=== PATIENT | male | born 1945 | race Caucasian/White ===

== ENCOUNTER → 2017-07-11 11:34 | Outpatient (CLI) | payer MEDICARE, OTHER, SELFPAY | PROVIDERS: Family Provider Urology; PCP Internal Medicine; Visit Provider Radiology Radiation Oncology | DX: C61 Malignant neoplasm of prostate (principal) | CPT/HCPCS: 36415; 84153 ==

== ENCOUNTER 2017-08-16 14:38 | Emergency (ER) | payer MEDICARE, OTHER, SELFPAY ==
[2017-08-16 14:43] VITALS: BP 123/82; PULSE 65; RESP 16; TEMP 36.4; O2SAT 97; BMI 26.1
--- NOTE | 2017-08-16 14:55 | ED.LOWEXIN ---
HPI - Extremity Injury (Lower) <Marlen Curtis PA-C - Last Filed: 08/16/17 21:42> General Chief Complaint: Extremity Injury, Lower Stated Complaint: SWOLLEN LEFT LOWER LEG Time Seen by Provider: 08/16/17 14:55 Source: patient Mode of arrival: ambulatory Limitations: no limitations History of Present Illness HPI Narrative: This 72-year-old male comes in due to acute left calf pain and swelling in the last 2 days. He states that he has chronic swelling in his ankle on that side along with weakness due to previous injury 25 years ago. He has also been having ongoing pain and weakness in both legs related to his degenerative disc disease and back problems. In general his pain and weakness have not gotten any worse. He has neuropathy and his numbness is stable. He states that because of his back problems, he has been less active than normal in the last few months. He denies recent injury, however he did have a fall while on vacation in May and had more pain in the left lower extremity throughout afterwards. Two days ago, he was a little bit more active than usual and was out on his sailboat, but does not remember any injury to the leg. He states the calf feels ?like a balloon? and it is harder to bend his ankle due to the swelling. He denies any chest pain, dyspnea, nausea or abdominal symptoms. He denies any other complaints on systems review. He does not have any history of gout or blood clots. Related Data Home Medications Medication Instructions Recorded Confirmed ACETAMINOPHEN/ASPIRIN, BUFFE 1 tab PO PRN #0 06/09/12 (#EXCEDRIN BACK & BODY 250 MG-250 MG) aspirin 325 mg PO PRN #0 06/09/12 multivitamin [Multiple Vitamins] 1 tab PO QDAY #0 03/25/17 potassium citrate 10 meq PO QDAY #0 03/25/17 vit C,S-Wo-mwaai-lutein-zeaxan 1 ea PO #0 03/25/17 [PreserVision AREDS 2] Review of Systems <Marlen Curtis PA-C - Last Filed: 08/16/17 21:42> Review of Systems All systems reviewed & are unremarkable except as noted in HPI and below Exam <Marlen Curtis PA-C - Last Filed: 08/16/17 21:42> Narrative Exam Narrative: GENERAL APPEARANCE: Patient sitting comfortably, in no distress. LUNGS: Clear to auscultation bilaterally. HEART: Rate and rhythm regular without murmur, normal S1 and S2, no S3 or S4. ABDOMEN: Soft, nontender, nondistended EXTREMITIES: No edema over the right foot or lower extremity, moderate edema on the left from the foot to the calf. Right ankle measures 19.5 cm, left 23. Right calf measures 37 cm, left 41.5. Left calf is tender to touch. Numerous varicosities noted bilaterally. There is no cyanosis, pedal and PT pulses are intact bilaterally Initial Vital Signs Initial Vital Signs: Vital Signs Temperature 97.6 F 08/16/17 14:43 Pulse Rate 65 08/16/17 14:43 Respiratory Rate 16 08/16/17 14:43 Blood Pressure 123/82 H 08/16/17 14:43 Pulse Oximetry 97 08/16/17 14:43 <DO Pedro Hawk Last Filed: 08/17/17 07:27> Initial Vital Signs Initial Vital Signs: Vital Signs Temperature 97.6 F 08/16/17 14:43 Pulse Rate 65 08/16/17 14:43 Respiratory Rate 16 08/16/17 14:43 Blood Pressure 123/82 H 08/16/17 14:43 Pulse Oximetry 97 08/16/17 14:43 Course <Marlen Curtis PA-C - Last Filed: 08/16/17 21:42> Orders Ordered: ED Orders 08/16/17 15:22 perip venous low extrem lt Stat Vital Signs - 8 hr 08/16/17 14:43 08/16/17 16:41 Temperature 97.6 F 98.0 F Pulse Rate 65 57 L Respiratory Rate 16 14 Blood Pressure 123/82 H Blood Pressure [Left Arm] 137/101 H Pulse Oximetry 97 96 <DO Pedro Hawk Last Filed: 08/17/17 07:27> Orders Ordered: ED Orders 08/16/17 15:22 [facility] venous low extrem lt Stat Vital Signs - 8 hr 08/16/17 14:43 08/16/17 16:41 Temperature 97.6 F 98.0 F Pulse Rate 65 57 L Respiratory Rate 16 14 Blood Pressure 123/82 H Blood Pressure [Left Arm] 137/101 H Pulse Oximetry 97 96 MDM - Extremity Injury (Lower) <Marlen Curtis PA-C - Last Filed: 08/16/17 21:42> Imaging Data Venous US: Radiologist's impression: View Report History [address] [address] Ultrasound Report Signed Patient: Krzysztof Mayers MR#: [id number] : 1945 Acct:[id number] Age/Sex: 72 / M Date of Service: 08/16/17 Loc: ED Accession Number: [id number] Procedure: US perip venous low extrem lt Ordering Provider: Marlen Curtis P.A-C PROCEDURE: US PERIPH VENOUS LOW EXTREM LT INDICATIONS: LEFT LEG EDEMA; CALF PAIN TECHNIQUE: Real-time imaging, as well as color and pulse Doppler interrogation, were performed of the lower extremity deep veins from the inguinal ligament to the popliteal fossa. COMPARISON: None. FINDINGS: The deep veins are normally compressible, and free of intraluminal thrombus. Color and pulse Doppler demonstrate normal phasic intraluminal flow. There is normal augmentation response to distal compression maneuver. However, there is a large elongated fluid collection identified that has a heterogeneous appearance that extends from the posterior aspect of the lower thigh through the popliteal fossa to the mid calf. This fluid collection measures up to 18 cm in length. IMPRESSION: 1. No evidence of left lower extremity deep vein thrombosis. 2. Large complex fluid collection along the posterior aspect of the left lower leg is centered within the popliteal fossa, suspicious for a hematoma. A very large Elliott cyst or abscess is difficult to exclude. Please correlate clinically. Dictated by: Darryl Thomas M.D. on 08/16/2017 at 16:48 Approved by: Darryl Thomas M.D. on 08/16/2017 at 16:52 Discharge Plan Departure Patient Disposition: Home, Self-Care Clinical Impression: Edema of lower extremity, Hematoma Discharge Date/Time: 08/16/17 17:36 Interventions: ED Discharge Assessment Last Done: 08/16/17 17:31 Instructions: DI for Hematoma (Bruise) Activity Restrictions/Additional Instructions: Return as we talked about if you have acutely worsening symptoms or new symptoms such as fever. Keep this leg elevated and rest over the weekend. Use the compression wraps as needed for comfort. Call your PCP and you should follow-up on Friday to determine whether this is improving or whether a referral is needed. There is no evidence of a blood clot on your scan today, but you do have a probable muscle tear that is causing a blood collection, or this could be due to an inflamed cyst. Take your usual pain medicines at home. Prescriptions: No Action ACETAMINOPHEN/ASPIRIN, BUFFE (#EXCEDRIN BACK & BODY 250 MG-250 MG) 1 tab PO PRN Qty: 0 RF: 0 aspirin 325 MG tablet 325 mg PO PRN Qty: 0 RF: 0 multivitamin [Multiple Vitamins] 1 EACH tablet 1 tab PO QDAY Qty: 0 RF: 0 potassium citrate 10 MEQ tablet extended release 10 meq PO QDAY Qty: 0 RF: 0 vit C,B-Gp-djjom-lutein-zeaxan [PreserVision AREDS 2] 1 EACH capsule 1 ea PO Qty: 0 RF: 0 Referrals: Dheeraj Tristan MD [Primary Care Provider] - <Tiago Mcmanus DO - Last Filed: 08/17/17 07:27> Cosign ED Attending Gabeature Attestation: I was available for consultation during this patient's emergency department encounter
--- NOTE | 2017-08-16 15:22 | DI.US.S_ITS ---
PROCEDURE: US PERIPH VENOUS LOW EXTREM LT INDICATIONS: LEFT LEG EDEMA; CALF PAIN TECHNIQUE: Real-time imaging, as well as color and pulse Doppler interrogation, were performed of the lower extremity deep veins from the inguinal ligament to the popliteal fossa. COMPARISON: None. FINDINGS: The deep veins are normally compressible, and free of intraluminal thrombus. Color and pulse Doppler demonstrate normal phasic intraluminal flow. There is normal augmentation response to distal compression maneuver. However, there is a large elongated fluid collection identified that has a heterogeneous appearance that extends from the posterior aspect of the lower thigh through the popliteal fossa to the mid calf. This fluid collection measures up to 18 cm in length. IMPRESSION: 1. No evidence of left lower extremity deep vein thrombosis. 2. Large complex fluid collection along the posterior aspect of the left lower leg is centered within the popliteal fossa, suspicious for a hematoma. A very large Elliott cyst or abscess is difficult to exclude. Please correlate clinically. Dictated by: Darryl Thomas M.D. on 08/16/2017 at 16:48 Approved by: Darryl Thomas M.D. on 08/16/2017 at 16:52
--- NOTE | 2017-08-16 15:24 | PC.NURSE ---
Left calf and ankle are swollen - pain in posterior aspect of calf and knee - difficulty weight bearing - tender to touch - no notable redness or warmth
[2017-08-16 16:41] VITALS: BP 137/101; PULSE 57; RESP 14; TEMP 36.7; O2SAT 96
--- NOTE | 2017-08-16 17:34 | PC.NURSE ---
shalonda wrap from foot to just below knee
== END 2017-08-16 17:36 | disposition home or self-care (01) ==
PROVIDERS: Emergency Provider Internal Medicine; PCP Internal Medicine
DX: R60.0 Localized edema (principal); S80.12XA Contusion of left lower leg, initial encounter
CPT/HCPCS: 93971; 99282; 99284

== ENCOUNTER → 2017-08-25 16:29 | Outpatient (CLI) | payer MEDICARE, OTHER, SELFPAY ==
[2017-08-25 17:48] LABS: Alanine Aminotransferase 38 IU/L (21-72); Albumin 4.3 g/dL (3.5-5.0); Albumin Globulin Ratio 1.4 (1.0-2.8); Alkaline Phosphatase 105 U/L (38-126); Aspartate Aminotransferase 27 IU/L (17-59); BUN Creatinine Ratio 34.4 (6-22); Bilirubin Total 0.6 mg/dL (0.2-1.3); Blood Urea Nitrogen 31 mg/dL (9-20); Carbon Dioxide 26 mmol/L (22-32); Chloride 106 mmol/L (98-107); Estimated Glomerular Filt Rate > 60.0 mL/min (>60); Glucose 83 mg/dL (80-110); HEMOLYSIS < 15 (0-50); Hemoglobin A1C% w Est Avg Glu 5.2 % (4.0-6.0); Potassium 4.6 mmol/L (3.4-5.1); Sodium 142 mmol/L (137-145); Total Protein 7.3 g/dL (6.3-8.2)
[2017-08-25 18:18] LABS: Thyroid Stimulating Hormone 1.66 uIU/mL (0.47-4.68)
[2017-08-25 18:37] LABS: Vitamin B12 720 pg/mL (239-931)
[2017-08-27 23:48] LABS: Vitamin B6 10.4 ng/mL (2.1-21.7)
[2017-08-29 00:29] LABS: Albumin 4.1 g/dL (3.8-4.8); Alpha 1 Globulin 0.4 g/dL (0.2-0.3); Alpha 2 Globulin 0.9 g/dL (0.5-0.9); Beta 1 Globulin 0.4 g/dL (0.4-0.6); Gamma Globulin 0.9 g/dL (0.8-1.7); Protein, Total 7.1 g/dL (6.1-8.1)
[2017-08-29 11:39] LABS: ANA Screen NEGATIVE (Negative); DNA Antibody Crithidia IFA NEGATIVE (Negative); Rheumatoid Factor 24 IU/mL (< 14); Sjogren Antiboday SS-A <1.0 NEG AI (<1.0 NEGATIVE); Sjogren Antiboday SS-B <1.0 NEG AI (<1.0 NEGATIVE); Sm Antibody <1.0 NEG AI (<1.0 NEGATIVE); Sm/RNP Antibody <1.0 NEG AI (<1.0 NEGATIVE)
[2017-08-30 11:12] LABS: Albumin 100 %; Protein/ Creatinine Ratio 95 mg/g creat (22-128); Total Urine Protein 15 mg/dL (5-25); Urine Creatinine, Random 158 mg/dL (20-370)
== END ==
PROVIDERS: PCP Internal Medicine; Visit Provider Psychiatry & Neurology Neurology
DX: M54.40 Lumbago with sciatica, unspecified side (principal); G89.29 Other chronic pain; M48.062 Spinal stenosis, lumbar region with neurogenic claudication; M54.16 Radiculopathy, lumbar region; M54.17 Radiculopathy, lumbosacral region; R20.2 Paresthesia of skin
CPT/HCPCS: 36415; 80053; 82607; 83036; 84155; 84156; 84165; 84166; 84207; 84443; 86038; 86430; 87522

== ENCOUNTER → 2017-09-26 06:39 | Outpatient (CLI) | payer MEDICARE, OTHER, SELFPAY ==
--- NOTE | 2017-09-26 | DI.MRI.S_ITS ---
PROCEDURE: MR KNEE LT WO CON INDICATIONS: RUPTURE OF POPLIPIAL CYST TECHNIQUE: Noncontrast sagittal PD fast spin echo and T2 fast spin echo with fat saturation, sagittal 3-D FLASH with fat saturation; coronal T1 spin echo and PD fast spin echo with fat saturation, and axial PD fast spin echo with fat saturation through the knee. COMPARISON: None. FINDINGS: Image quality: Excellent. Menisci: The complex tear is seen involving posterior horn of medial meniscus extending to both superior and inferior articulating surfaces. Signal abnormality involving anterior horn of lateral meniscus is also noted extending to superior articulating surface consistent with an oblique tear in anterior horn of the lateral meniscus. The meniscal root ligaments appear intact Cruciate ligaments: There is full-thickness rupture of ACL of indeterminate age. Degenerative changes in the PCL is seen with no evidence of PCL tear. Medial structures: The medial collateral ligament is mildly thickened and suggestive of very low-grade MCL sprain. The posterior oblique ligament, semimembranosus tendon insertions, oblique popliteal ligament, and meniscocapsular junction appear intact. Visualized portions of the pes anserinus tendons appear normal. No abnormal bursal fluid. Lateral structures: The lateral collateral ligament, long and short heads of the biceps femoris tendon appear intact. The popliteus tendon appears normal; the popliteofibular ligament appears intact. The posterosuperior and anteroinferior popliteomeniscal fascicles appear intact. The arcuate and fabellofibular ligaments appear intact, on either side of the lateral inferior geniculate artery. Iliotibial band appears normal. Anterior structures: The quadriceps and patellar tendons appear intact. Patellar alignment is normal. Postsurgical changes involving anterior tibial tuberosity the patellar tendon insertion site is seen with blooming metallic artifacts. No femoral trochlear dysplasia or ventral trochlear prominence. No edema in the infrapatellar fat pad. Bones and cartilage: No bone marrow contusions or fractures. [id number] tricompartmental osteoarthritis is seen. Mild to moderate thinning of articulating cartilages and patellar cartilage in all 3 compartments is seen. Joint space: There is moderate to large amount of joint effusion. No gross loose body. A 3.3 x 1.8 x 6.1 cm popliteal cyst is seen. Normal appearing synovial plicae are incidentally noted. IMPRESSION: 1. Age indeterminant ACL rupture. Degenerative changes in distal PCL with no evidence of PCL tear. 2. Complex tear involving posterior horn of medial meniscus extending to both superior and inferior articulating surfaces. Complex oblique tear involving anterior horn of lateral meniscus extending to superior articulating surface. 3. Moderate amount of joint effusion. Popliteal cyst as above. No gross loose body. Moderate tricompartment osteoarthritis. No fracture or dislocation. 4. Post surgical changes at distal patella tendon insertion on the tibial tuberosity. Patella tendon appears grossly intact. Dictated by: Joe Dugan M.D. on 09/26/2017 8:27 Approved by: Joe Dugan M.D. on 09/26/2017 at 10:00
== END ==
PROVIDERS: PCP Internal Medicine; Visit Provider Orthopaedic Surgery
DX: M66.0 Rupture of popliteal cyst (principal); S83.512A Sprain of anterior cruciate ligament of left knee, initial encounter; S83.272A Complex tear of lateral meniscus, current injury, left knee, initial encounter; S83.232A Complex tear of medial meniscus, current injury, left knee, initial encounter; M25.462 Effusion, left knee; M17.12 Unilateral primary osteoarthritis, left knee
CPT/HCPCS: 73721

== ENCOUNTER 2017-10-31 09:16 | Emergency (ER) | payer MEDICARE, OTHER, SELFPAY ==
[2017-10-31 09:23] VITALS: BP 168/100; PULSE 68; RESP 18; TEMP 36.7; O2SAT 93; BMI 26.3
--- NOTE | 2017-10-31 09:33 | ED.BACK ---
HPI - Back Pain/Injury General Chief Complaint: Back Pain/Injury Stated Complaint: BACK SURGERY 3 WKS AGO, BACK PAIN Time Seen by Provider: 10/31/17 09:30 Source: patient Mode of arrival: ambulatory Limitations: no limitations History of Present Illness HPI Narrative: Patient is a 72-year-old male who underwent a L3-L4 laminectomy by at [facility] on September 30, 2017. Operative report was available for my review and it did appear to be in a uncomplicated laminectomy. Patient states that afterwards he felt better. He states that prior to his surgery he did have lower back pain with bilateral radiculopathy. States he was feeling well after the surgery until approximately 1 week ago when he ?over did it? he states that he was helping a friend rig ACL boat. He states that he was cautious to not lift anything however did have a lot of bending and twisting. He states that he had a follow-up scheduled with his operative surgeon afterwards which was within the past week and did discuss the increase in pain that he was having to his lower back. He states that he was on a course of steroids which she finished. States that over the past week he has had worsening pain and radiculopathy and only his left lower extremity. He states that it feels very similar to his preoperative pain although only in the left lower extremity and not the right lower extremity. He has taken pain medication and anti-inflammatories at home without any improvement. He is scheduled for an MRI next however when he called his operative surgeon this morning the informed him to come to the emergency department. Patient denies any bowel or bladder symptoms. No saddle anesthesia. No fevers. Does have swelling over the surgical incision that has appeared over the past couple days. No fevers. Patient states that the spine surgeon wanted this MRI done with contrast. Related Data Home Medications Medication Instructions Recorded Confirmed ACETAMINOPHEN/ASPIRIN, BUFFE 1 tab PO PRN PRN #0 06/09/12 10/31/17 (#EXCEDRIN BACK & BODY 250 MG-250 MG) multivitamin [Multiple Vitamins] 1 tab PO QPM #0 03/25/17 10/31/17 potassium citrate 10 meq PO QPM #0 03/25/17 10/31/17 vit C,M-Rj-dhmbj-lutein-zeaxan 1 ea PO QPM #0 03/25/17 10/31/17 [PreserVision AREDS 2] acetaminophen 500 mg tablet 500 mg PO Q6H PRN 08/25/17 10/31/17 gabapentin 300 mg capsule 300 mg PO TID 08/25/17 10/31/17 hydrocodone-acetaminophen 2 tab PO Q6H PRN 10/31/17 10/31/17 ibuprofen [Advil] 3 tab PO PRN PRN 10/31/17 10/31/17 Allergies Allergy/AdvReac Type Severity Reaction Status Date / Time No Known Drug Allergies Allergy Verified 10/31/17 09:34 Review of Systems Constitutional Denies fatigue and Denies fever(s) Cardiovascular Denies chest pain and Denies dyspnea Respiratory Denies dyspnea Gastrointestinal Gastrointestinal: Denies abdominal pain, Denies change in bowel habits, Denies diarrhea, Denies nausea and Denies vomiting Genitourinary Denies dysuria, Denies flank pain, Denies urinary frequency, Denies urinary hesitancy, Denies urinary incontinence and Denies urinary urgency Musculoskeletal Reports abnormal gait, Reports back pain, Denies muscle weakness, Reports radiating pain into limb (Left lower extremity) and Denies tingling Integumentary/Breasts Denies lesions and Denies rash Comments: Swelling around the operative site in his lower back Neurologic Reports abnormal gait and Denies tingling Endocrine Denies fatigue Hematologic/Lymphatic Denies easy bleeding and Denies easy bruising Allergic/Immunologic Denies urticaria [facility] Medical History Chronic back pain (Chronic ~1997) Degenerative disc disease (Chronic) Rheumatoid arthritis (Chronic ~2010) Elevated prostate specific antigen (PSA) (Chronic 01/31/15) History of kidney stones (Chronic) History of colon polyps (Chronic ~2009) History of recurrent ear infection (Chronic) Vision disorder (Chronic) Acne (Resolved ~1959) Ankle pain (Resolved ~1987) Carpal tunnel syndrome (Resolved ~2011) Fracture of wrist (Resolved ~1966) Kidney stones (Resolved) Measles (Resolved ~1950) Mumps (Resolved ~1950) Plantar warts (Resolved ~2009) Ruptured tympanic membrane (Resolved) Surgical History History of back surgery (Acute) History of carpal tunnel repair (Inactive ~2011) History of tonsillectomy (Inactive ~1957) Status post bunionectomy (Inactive ~2000) Status post hernia repair (Inactive ~1998) Status post knee surgery (Inactive ~2007) Family History Brother Age: 73 History of prostate cancer Father History of heart attack Social History marital status: number of children: 1 household members: spouse lives independently: Yes caregiver/support person: No housing: house pets and animals: No education level: other (Bachelors of Arts) occupational status: other (Retired) current occupational exposures/hazards: No Previous occupational history: Teacher elham/confucianist: Holiness travel history: recent ([place], [place], [place].) and other ([place], [place], [place]. [place]. [place] river cruise. [place] and [place].) leisure activities: fishing ([place]) and other (Traveling, Boating, Sailing. ) Smoking Status: Current every day smoker Tobacco: How many years used: 55 Smokeless tobacco user: other (Cigarettes) quit status: has quit before (Semi quit before) second hand exposure: Yes (When younger.) alcohol intake: current (Occasionally) substance use type: does not use Exam Initial Vital Signs Initial Vital Signs: Vital Signs Temperature 98.1 F 10/31/17 09:23 Pulse Rate 68 10/31/17 09:23 Respiratory Rate 18 10/31/17 09:23 Blood Pressure 168/100 H 10/31/17 09:23 Pulse Oximetry 93 10/31/17 09:23 Const General: cooperative, well developed, well groomed and No acute distress Orientation: alert, awake and oriented x3 HENMT Head: normal to inspection and normocephalic Resp Effort & Inspection: normal respiratory effort GI Inspection: normal to inspection and non-distended Palpation: soft Back/Spine/Pelvis Other: Patient with approximately 3 cm scar midline lower back consistent with his stated history. Does have swelling that extends approximately 1-2 cm in all directions around this area. That is soft and tender to palpation. No overlying erythema. The wound does not have any dehiscence. Skin Lesions: no lesions Rashes: no rashes Neuro General: alert, awake and oriented x3 Cognition: normal cognition Speech: speech normal Motor: muscle tone normal throughout Extrem Other: No gross deformities Psych Appearance: grossly normal and well kempt Course Orders Ordered: ED Orders 10/31/17 09:49 MR lumbar spine wo/w con Stat 10/31/17 10:00 Basic Metabolic Panel Stat C-Reactive Protein Quant Stat Complete Blood Count AUTO DIFF Stat Erythrocyte Sedimentation Rate Stat 10/31/17 11:57 Urine Microscopic Stat Discontinued Medications Hydromorphone HCl (Dilaudid) 1 mg IV NOW ONE Stop: 10/31/17 09:50 Last Admin: 10/31/17 10:05 Dose: 1 mg Hydromorphone HCl (Dilaudid) 1 mg IV NOW ONE Stop: 10/31/17 13:29 Sodium Chloride (Normal Saline 0.9%) 1,000 mls @ 500 mls/hr IV BOLUS ONE Stop: 10/31/17 11:50 Last Infusion: 10/31/17 10:43 Dose: 999 mls/hr Admin: 10/31/17 10:05 Dose: 500 mls/hr Vital Signs - 8 hr 10/31/17 09:23 10/31/17 10:44 10/31/17 11:49 Temperature 98.1 F 97.3 F L Pulse Rate 68 63 81 Respiratory Rate 18 18 18 Blood Pressure 168/100 H Blood Pressure [Left Arm] 141/82 H 134/86 Pulse Oximetry 93 95 98 MDM - Back Pain/Injury Lab Data Attestation: I reviewed the patient's lab results. Result diagrams: 10/31/17 10:00 10/31/17 10:00 Lab Results 10/31/17 10/31/17 10/31/17 Range/Units 10:00 10:00 10:00 WBC 6.7 (4.5-11.0) X10^3/uL RBC 4.94 (4.5-5.9) X10^6/uL Hgb 16.0 (13.5-17.5) g/dL Hct 46.2 (41-53) % MCV 93.5 (80-100) fL MCH 32.4 (26-34) PG MCHC 34.6 (30-36) % RDW 13.6 (11.6-14.8) % Plt Count 212 (150-400) X10^3/uL Neut % (Auto) 49.2 L (50-75) % Lymph % (Auto) 33.9 (25-40) % [place] % (Auto) 12.3 (3-14) % Eos % (Auto) 3.3 (2-4) % Baso % (Auto) 1.3 (0-2) % Neut # (Auto) 3300 (5829-8078) /uL ESR 1 (0-15) MM/HR Sodium 142 (137-145) mmol/L Potassium 4.0 (3.4-5.1) mmol/L Chloride 108 H (98-107) mmol/L Carbon Dioxide 25 (22-32) mmol/L BUN 30 H (9-20) mg/dL Creatinine 0.80 (0.66-1.25) mg/dL Estimated GFR > 60.0 (>60) mL/min BUN/Creatinine Ratio 37.5 H (6-22) Glucose 94 (80-110) mg/dL Calcium 9.5 (8.4-10.2) mg/dL C-Reactive Protein (<1.0) mg/dL Urine RBC (0-5/HPF) Urine WBC (0-5/HPF) Urine Bacteria (None) Ur Culture Indicated? Micro UA Comment 10/31/17 10/31/17 Range/Units 10:00 11:57 WBC (4.5-11.0) X10^3/uL RBC (4.5-5.9) X10^6/uL Hgb (13.5-17.5) g/dL Hct (41-53) % MCV (80-100) fL MCH (26-34) PG MCHC (30-36) % RDW (11.6-14.8) % Plt Count (150-400) X10^3/uL Neut % (Auto) (50-75) % Lymph % (Auto) (25-40) % [place] % (Auto) (3-14) % Eos % (Auto) (2-4) % Baso % (Auto) (0-2) % Neut # (Auto) (3975-8960) /uL ESR (0-15) MM/HR Sodium (137-145) mmol/L Potassium (3.4-5.1) mmol/L Chloride (98-107) mmol/L Carbon Dioxide (22-32) mmol/L BUN (9-20) mg/dL Creatinine (0.66-1.25) mg/dL Estimated GFR (>60) mL/min BUN/Creatinine Ratio (6-22) Glucose (80-110) mg/dL Calcium (8.4-10.2) mg/dL C-Reactive Protein 0.6 (<1.0) mg/dL Urine RBC 0-1/hpf (0-5/HPF) Urine WBC None seen (0-5/HPF) Urine Bacteria None seen (None) Ur Culture Indicated? Cult not indicated Micro UA Comment Not Reportable Urine Dip Bedside Urine Glucose Negative Bedside Urine Bilirubin - Negative Bedside Urine Ketone - Negative Urine Specific [place] 1.030 Bedside Urine Occult Blood +/- Bedside Urine pH 6.0 Bedside Urine Protein - Negative Bedside Urine Urobilinogen 0.2 Bedside Urine Nitrite - Negative Bedside Urine Leukocytes - Negative Esterase Imaging Data MRI - lumbar: Radiologist's impression: [address] [address] Magnetic Resonance Report Signed Patient: Krzysztof Mayers BANNER#: [id number] : 1945cct:[id number] Age/Sex: 72 / MDate of Service: 10/31/17 Loc: ED Accession Number: [id number] Procedure: MR lumbar spine wo/w con Ordering Provider: Tiago Mcmanus D.O. PROCEDURE: MR LUMBAR SPINE WO/W CON INDICATIONS: L3/4 surgery 1 month ago with L side pain and swelling TECHNIQUE: Noncontrast sagittal T1 spin echo and T2 fast spin echo, sagittal STIR, axial T1 and T2 fast spin echo through the lumbar spine. In cases with scoliosis, additional coronal T2 fast spin echo may be performed. After the administration of contrast, sagittal and axial T1 spin echo with fat saturation through the lumbar spine. COMPARISON: [facility], , L-SPINE WITHOUT CONTRAST, 03/28/2017, 13:33. FINDINGS: Image quality: This examination is limited by involuntary motion artifact. Alignment and curvature: The spinal alignment is within normal limits. Marrow: Marrow is of normal overall signal. No acute vertebral body compression fractures. No suspicious marrow enhancement. Spinal cord: Conus medullaris terminates at the L1 level. Visualized spinal cord demonstrates normal signal, without suspicious enhancement. On these images, no definite, ritesh findings of epidural abscess can be seen. Paraspinous soft tissues: There is an oblong irregular fluid collection seen within the postoperative bed at the L3-L4 level, which measures nearly 6 cm craniocaudally and measures 5.6 cm AP. This fluid collection demonstrates mild rim enhancement and mild surrounding inflammatory change. No paravertebral masses or abnormal enhancement. A nonenhancing right renal cyst is incidentally noted measuring 3.4 cm. This patient's motion artifact limits evaluation for level by level discussion. However, the degree of central canal narrowing at the L3-L4 level is clearly improved compared to the preoperative MRI dated 03/28/17. IMPRESSION: There is a fluid collection seen that measures nearly 6 cm at the postoperative level at L3-L4. There is rim enhancement and surrounding inflammatory change. Differential diagnosis for this includes postoperative abscess and a relatively prominent, yet benign postoperative fluid collection. Please correlate with patient symptoms and physical examination findings. Motion limited study. If it would be helpful for clinical management decision making (for example, there is suspicion for epidural abscess or discitis that cannot be perceived on this study) then please consider a dedicated repeat study with sedation. The degree of central canal narrowing and L3-L4 has improved compared to the prior examination. Dictated by: Sai Michelle M.D. on 10/31/2017 at 10:58 Approved by: Sai Michelle M.D. on 10/31/2017 at 11:05 MDM Narrative Medical decision making narrative: Patient with lumbar spine surgery 1 month ago with increasing pain over the past 1-2 weeks. MRI today degraded secondary to motion. I discussed the case with Dr. Beyer who was the patient's operative surgeon and was also the neurosurgeon mobile sales consultant today who reviewed the MRI. Patient does not have an elevated white blood cell count, ESR and CRP unremarkable. Afebrile. After review from the neurosurgeon there is low concern for an abscess. There is some concern about a CSF leak and given the swelling that is around the patient's operative site this is a concern for me as well. Will transfer the patient to [facility] with Dr. Beyer out has accepting provider. Discussed this with the patient and his . Patient is stable. They will transport by POV. They were given instructions on where to arrive. Discharge Plan Departure Patient Disposition: [facility] Clinical Impression: Postoperative pain, Low back pain radiating to left leg Activity Restrictions/Additional Instructions: Your being discharged with the intent of you driving by personal vehicle to [facility]. Dr. beyer is expecting you. [facility] are to go to the [facility] and check in there for admission. Prescriptions: No Action ACETAMINOPHEN/ASPIRIN, BUFFE (#EXCEDRIN BACK & BODY 250 MG-250 MG) 1 tab PO PRN PRN (Reason: Pain, Mild) Qty: 0 RF: 0 multivitamin [Multiple Vitamins] 1 EACH tablet 1 tab PO QPM Qty: 0 RF: 0 potassium citrate 10 MEQ tablet extended release 10 meq PO QPM Qty: 0 RF: 0 vit C,S-Pn-rygem-lutein-zeaxan [PreserVision AREDS 2] 1 EACH capsule 1 ea PO QPM Qty: 0 RF: 0 acetaminophen [Tylenol Extra Strength] 500 mg tablet 500 mg PO Q6H PRN (Reason: Pain, Mild) RF: 0 gabapentin 300 mg capsule 300 mg PO TID RF: 0 hydrocodone-acetaminophen 5-300 mg Tablet 2 tab PO Q6H PRN (Reason: Pain (Scale Score 7-10)) RF: 0 ibuprofen [Advil] 200 mg Tablet 3 tab PO PRN PRN (Reason: Pain (Scale Score 7-10)) RF: 0
--- NOTE | 2017-10-31 09:49 | DI.MRI.S_ITS ---
PROCEDURE: MR LUMBAR SPINE WO/W CON INDICATIONS: L3/4 surgery 1 month ago with L side pain and swelling TECHNIQUE: Noncontrast sagittal T1 spin echo and T2 fast spin echo, sagittal STIR, axial T1 and T2 fast spin echo through the lumbar spine. In cases with scoliosis, additional coronal T2 fast spin echo may be performed. After the administration of contrast, sagittal and axial T1 spin echo with fat saturation through the lumbar spine. COMPARISON: [facility], , L-SPINE WITHOUT CONTRAST, 03/28/2017, 13:33. FINDINGS: Image quality: This examination is limited by involuntary motion artifact. Alignment and curvature: The spinal alignment is within normal limits. Marrow: Marrow is of normal overall signal. No acute vertebral body compression fractures. No suspicious marrow enhancement. Spinal cord: Conus medullaris terminates at the L1 level. Visualized spinal cord demonstrates normal signal, without suspicious enhancement. On these images, no definite, ritesh findings of epidural abscess can be seen. Paraspinous soft tissues: There is an oblong irregular fluid collection seen within the postoperative bed at the L3-L4 level, which measures nearly 6 cm craniocaudally and measures 5.6 cm AP. This fluid collection demonstrates mild rim enhancement and mild surrounding inflammatory change. No paravertebral masses or abnormal enhancement. A nonenhancing right renal cyst is incidentally noted measuring 3.4 cm. This patient's motion artifact limits evaluation for level by level discussion. However, the degree of central canal narrowing at the L3-L4 level is clearly improved compared to the preoperative MRI dated 03/28/17. IMPRESSION: There is a fluid collection seen that measures nearly 6 cm at the postoperative level at L3-L4. There is rim enhancement and surrounding inflammatory change. Differential diagnosis for this includes postoperative abscess and a relatively prominent, yet benign postoperative fluid collection. Please correlate with patient symptoms and physical examination findings. Motion limited study. If it would be helpful for clinical management decision making (for example, there is suspicion for epidural abscess or discitis that cannot be perceived on this study) then please consider a dedicated repeat study with sedation. The degree of central canal narrowing and L3-L4 has improved compared to the prior examination. Dictated by: Sai Michelle M.D. on 10/31/2017 at 10:58 Approved by: Sai Michelle M.D. on 10/31/2017 at 11:05
[2017-10-31] MEDS: SODIUM CHLORIDE 0.9% 1,000 ML 500 ML IV (10:05)
[2017-10-31] MEDS: HYDROMORPHONE 0.5 MG INJ 1 MG IV (10:05)
[2017-10-31 10:10] LABS: Add Manual Diff / Slide Review NO; Basophils Percent Auto 1.3 % (0-2); Eosinophils Percent Auto 3.3 % (2-4); Hematocrit 46.2 % (41-53); Lymphocytes Percent Auto 33.9 % (25-40); Mean Corpuscular HGB Conc 34.6 % (30-36); Mean Corpuscular Hemoglobin 32.4 PG (26-34); Mean Corpuscular Volume 93.5 fL (80-100); Monocytes Percent Auto 12.3 % (3-14); Neutrophils Absolute Auto 3300 /uL (3000-5900); Neutrophils Percent Auto 49.2 % (50-75); Platelet Count 212 X10^3/uL (150-400); Red Blood Cell Count 4.94 X10^6/uL (4.5-5.9); Red Cell Distribution Width 13.6 % (11.6-14.8); White Blood Cell Count 6.7 X10^3/uL (4.5-11.0)
[2017-10-31 10:22] LABS: BUN Creatinine Ratio 37.5 (6-22); Blood Urea Nitrogen 30 mg/dL (9-20); Calcium 9.5 mg/dL (8.4-10.2); Carbon Dioxide 25 mmol/L (22-32); Chloride 108 mmol/L (98-107); Estimated Glomerular Filt Rate > 60.0 mL/min (>60); Glucose 94 mg/dL (80-110); HEMOLYSIS 19 (0-50); Sodium 142 mmol/L (137-145)
[2017-10-31 10:44] VITALS: BP 141/82; PULSE 63; RESP 18; O2SAT 95
[2017-10-31 11:49] VITALS: BP 134/86; PULSE 81; RESP 18; TEMP 36.3; O2SAT 98
--- NOTE | 2017-10-31 11:51 | PC.NURSE ---
Patient unable to give urine sample and requested some water
[2017-10-31 12:17] LABS: Bacteria Urine None Seen; WBC Urine None Seen (0-5/HPF)
[2017-10-31 12:32] LABS: Culture Indicated Urine Cult Not Indicated; RBC Urine 0-1/HPF (0-5/HPF)
[2017-10-31 12:52] LABS: C-Reactive Protein Quant 0.6 mg/dL (<1.0)
[2017-10-31 12:57] LABS: Erythrocyte Sedimentation Rate 1 MM/HR (0-15)
[2017-10-31] MEDS: HYDROMORPHONE 1 MG INJ IV (13:36)
[2017-10-31 14:08] VITALS: BP 127/84; PULSE 56; RESP 16; TEMP 36.7; O2SAT 95
[2017-10-31 14:20] VITALS: BP 127/84; PULSE 56; RESP 16; TEMP 36.7; O2SAT 95
== END 2017-10-31 14:36 | disposition short-term general hospital (02) ==
PROVIDERS: Emergency Provider Emergency Medicine; PCP Internal Medicine
DX: M54.5 Low back pain (principal); M79.605 Pain in left leg; X50.9XXA Other and unspecified overexertion or strenuous movements or postures, initial encounter; Z98.890 Other specified postprocedural states
CPT/HCPCS: 36591; 72158; 80048; 81003; 81015; 85025; 85651; 86140; 96361; 96374; 96376; 99284; 99285; J1170

== ENCOUNTER → 2017-11-17 16:37 | Outpatient (CLI) | payer MEDICARE, OTHER, SELFPAY ==
[2017-11-17 16:51] LABS: Bacteria Urine None Seen
[2017-11-17 17:23] LABS: Appearance Urine UA CLEAR; Bilirubin Urine UA NEGATIVE (NEGATIVE); Color Urine UA YELLOW; Glucose Urine UA NEGATIVE (Normal); Ketones Urine UA NEGATIVE (NEGATIVE); Leukocyte Esterase Urine UA NEGATIVE (NEGATIVE); Nitrite Urine UA Negative (Negative); Occult Blood Urine UA 3+ (Negative); Protein Urine UA NEGATIVE (Negative); Specific Gravity Urine UA <=1.005 (1.000-1.035); Urobilinogen Urine UA 0.2 E.U./dL (0.2)
[2017-11-17 17:26] LABS: Culture Indicated Urine Cult Not Indicated; Mucus Urine 1+ (Negative); RBC Urine 5-10/HPF (0-5/HPF); Squamous Epithelial Cell Urine 0-1 /HPF; WBC Urine 0-1/HPF (0-5/HPF)
== END ==
PROVIDERS: Family Provider Urology; PCP Internal Medicine; Visit Provider Neurological Surgery
DX: M54.5 Low back pain (principal); Z01.812 Encounter for preprocedural laboratory examination
CPT/HCPCS: 81001

== ENCOUNTER → 2017-11-26 10:47 | Outpatient (REF) | payer MEDICARE, OTHER, SELFPAY ==
[2017-11-26 10:56] LABS: Add Manual Diff / Slide Review NO; Basophils Percent Auto 0.8 % (0-2); Eosinophils Percent Auto 5.5 % (2-4); Hematocrit 40.8 % (41-53); Hemoglobin 13.8 g/dL (13.5-17.5); Mean Corpuscular HGB Conc 33.8 % (30-36); Mean Corpuscular Hemoglobin 31.2 PG (26-34); Mean Corpuscular Volume 92.2 fL (80-100); Neutrophils Absolute Auto 4400 /uL (3000-5900); Neutrophils Percent Auto 57.7 % (50-75); Platelet Count 366 X10^3/uL (150-400); Red Blood Cell Count 4.42 X10^6/uL (4.5-5.9); Red Cell Distribution Width 13.5 % (11.6-14.8); White Blood Cell Count 7.7 X10^3/uL (4.5-11.0)
[2017-11-26 11:04] LABS: Alanine Aminotransferase 58 IU/L (21-72); Estimated Glomerular Filt Rate > 60.0 mL/min (>60)
[2017-11-26 11:11] LABS: Vancomycin Trough 8.1 ug/mL (10-20)
== END ==
LOC: LAB 10:47
PROVIDERS: Family Provider Urology; PCP Internal Medicine
DX: I10 Essential (primary) hypertension (principal)
CPT/HCPCS: 80202; 82565; 84460; 85025

== ENCOUNTER → 2017-12-08 12:58 | Outpatient (REF) | payer MEDICARE, OTHER, SELFPAY ==
[2017-12-08 13:15] LABS: Add Manual Diff / Slide Review NO; Hematocrit 41.8 % (41-53); Lymphocytes Percent Auto 23.7 % (25-40); Mean Corpuscular HGB Conc 33.5 % (30-36); Mean Corpuscular Hemoglobin 30.4 PG (26-34); Mean Corpuscular Volume 90.9 fL (80-100); Monocytes Percent Auto 13.7 % (3-14); Neutrophils Absolute Auto 4600 /uL (3000-5900); Neutrophils Percent Auto 56.6 % (50-75); Platelet Count 249 X10^3/uL (150-400); Red Blood Cell Count 4.59 X10^6/uL (4.5-5.9); Red Cell Distribution Width 13.4 % (11.6-14.8); White Blood Cell Count 8.2 X10^3/uL (4.5-11.0)
[2017-12-08 13:21] LABS: Alanine Aminotransferase 31 IU/L (21-72); Estimated Glomerular Filt Rate > 60.0 mL/min (>60)
[2017-12-08 13:31] LABS: Vancomycin Trough 13.3 ug/mL (10-20)
== END ==
LOC: LAB 12:58
PROVIDERS: Family Provider Urology; PCP Internal Medicine
DX: T81.49XA Infection following a procedure, other surgical site, initial encounter (principal)
CPT/HCPCS: 80202; 82565; 84460; 85025

== ENCOUNTER → 2017-12-15 10:51 | Outpatient (REF) | payer MEDICARE, OTHER, SELFPAY ==
[2017-12-15 11:07] LABS: Add Manual Diff / Slide Review NO; Eosinophils Percent Auto 4.5 % (2-4); Hematocrit 39.5 % (41-53); Hemoglobin 13.4 g/dL (13.5-17.5); Lymphocytes Percent Auto 26.1 % (25-40); Mean Corpuscular Hemoglobin 30.5 PG (26-34); Mean Corpuscular Volume 89.9 fL (80-100); Monocytes Percent Auto 13.9 % (3-14); Neutrophils Absolute Auto 4700 /uL (3000-5900); Neutrophils Percent Auto 54.5 % (50-75); Platelet Count 230 X10^3/uL (150-400); Red Cell Distribution Width 13.4 % (11.6-14.8); White Blood Cell Count 8.7 X10^3/uL (4.5-11.0)
[2017-12-15 11:15] LABS: Alanine Aminotransferase 34 IU/L (21-72); Estimated Glomerular Filt Rate > 60.0 mL/min (>60)
[2017-12-15 11:55] LABS: Vancomycin Trough 15.9 ug/mL (10-20)
== END ==
LOC: LAB 10:51
PROVIDERS: Family Provider Urology; PCP Internal Medicine; Visit Provider Internal Medicine Infectious Disease
DX: T81.40XA Infection following a procedure, unspecified, initial encounter (principal)
CPT/HCPCS: 80202; 82565; 84460; 85025

== ENCOUNTER → 2017-12-22 10:38 | Outpatient (REF) | payer MEDICARE, OTHER, SELFPAY ==
[2017-12-22 10:56] LABS: Add Manual Diff / Slide Review NO; Basophils Percent Auto 0.9 % (0-2); Hematocrit 39.8 % (41-53); Hemoglobin 13.4 g/dL (13.5-17.5); Lymphocytes Percent Auto 22.2 % (25-40); Mean Corpuscular HGB Conc 33.8 % (30-36); Mean Corpuscular Hemoglobin 30.4 PG (26-34); Monocytes Percent Auto 10.5 % (3-14); Neutrophils Absolute Auto 5100 /uL (3000-5900); Neutrophils Percent Auto 62.4 % (50-75); Platelet Count 235 X10^3/uL (150-400); Red Blood Cell Count 4.42 X10^6/uL (4.5-5.9); Red Cell Distribution Width 13.5 % (11.6-14.8); White Blood Cell Count 8.1 X10^3/uL (4.5-11.0)
[2017-12-22 11:01] LABS: Alanine Aminotransferase 32 IU/L (21-72); Estimated Glomerular Filt Rate > 60.0 mL/min (>60)
[2017-12-22 11:06] LABS: Vancomycin Trough 14.1 ug/mL (10-20)
== END ==
LOC: LAB 10:38
PROVIDERS: Family Provider Urology; PCP Internal Medicine; Visit Provider Internal Medicine Infectious Disease
DX: T81.40XA Infection following a procedure, unspecified, initial encounter (principal)
CPT/HCPCS: 80202; 82565; 84460; 85025

== ENCOUNTER → 2017-12-29 10:36 | Outpatient (REF) | payer MEDICARE, OTHER, SELFPAY ==
[2017-12-29 10:43] LABS: Add Manual Diff / Slide Review NO; Basophils Percent Auto 0.7 % (0-2); Eosinophils Percent Auto 3.1 % (2-4); Hematocrit 40.6 % (41-53); Hemoglobin 13.7 g/dL (13.5-17.5); Lymphocytes Percent Auto 25.1 % (25-40); Mean Corpuscular HGB Conc 33.8 % (30-36); Mean Corpuscular Hemoglobin 30.7 PG (26-34); Mean Corpuscular Volume 90.7 fL (80-100); Monocytes Percent Auto 12.4 % (3-14); Neutrophils Absolute Auto 4600 /uL (3000-5900); Neutrophils Percent Auto 58.7 % (50-75); Platelet Count 214 X10^3/uL (150-400); Red Blood Cell Count 4.48 X10^6/uL (4.5-5.9); Red Cell Distribution Width 13.5 % (11.6-14.8); White Blood Cell Count 7.8 X10^3/uL (4.5-11.0)
[2017-12-29 10:57] LABS: Alanine Aminotransferase 35 IU/L (21-72); Estimated Glomerular Filt Rate > 60.0 mL/min (>60)
== END ==
LOC: LAB 10:36
PROVIDERS: Family Provider Urology; PCP Internal Medicine; Visit Provider Internal Medicine Infectious Disease
DX: T81.40XA Infection following a procedure, unspecified, initial encounter (principal)
CPT/HCPCS: 80202; 82565; 84460; 85025

== ENCOUNTER → 2018-01-05 11:20 | Outpatient (REF) | payer MEDICARE, OTHER, SELFPAY ==
[2018-01-05 11:30] LABS: Add Manual Diff / Slide Review NO; Eosinophils Percent Auto 2.9 % (2-4); Hematocrit 41.4 % (41-53); Hemoglobin 13.8 g/dL (13.5-17.5); Lymphocytes Percent Auto 24.2 % (25-40); Mean Corpuscular HGB Conc 33.4 % (30-36); Mean Corpuscular Hemoglobin 30.3 PG (26-34); Mean Corpuscular Volume 90.7 fL (80-100); Monocytes Percent Auto 12.3 % (3-14); Neutrophils Absolute Auto 4100 /uL (3000-5900); Neutrophils Percent Auto 59.6 % (50-75); Platelet Count 202 X10^3/uL (150-400); Red Blood Cell Count 4.57 X10^6/uL (4.5-5.9); White Blood Cell Count 6.8 X10^3/uL (4.5-11.0)
[2018-01-05 11:40] LABS: Alanine Aminotransferase 29 IU/L (21-72); Estimated Glomerular Filt Rate > 60.0 mL/min (>60)
[2018-01-05 11:46] LABS: Vancomycin Trough 18.3 ug/mL (10-20)
== END ==
LOC: LAB 11:20
PROVIDERS: Family Provider Urology; PCP Internal Medicine; Visit Provider Internal Medicine Infectious Disease
DX: T81.40XA Infection following a procedure, unspecified, initial encounter (principal)
CPT/HCPCS: 80202; 82565; 84460; 85025

== ENCOUNTER → 2018-01-07 14:04 | Outpatient (CLI) | payer MEDICARE, OTHER, SELFPAY ==
--- NOTE | 2018-01-07 | DI.RAD.S_ITS ---
PROCEDURE: XR CHEST 2V INDICATIONS: ASSES PICC LINE PLACEMENT TECHNIQUE: 2 views of the chest were acquired. COMPARISON: None. FINDINGS: Surgical changes and devices: Left PICC line with the tip projecting in the left brachiocephalic vein Lungs and pleura: No pleural effusions or pneumothorax. No acute consolidation. Scattered bibasilar atelectasis/scarring Mediastinum: Mediastinal contours are normal. Heart size is normal. Bones and chest wall: No suspicious bony abnormalities. Soft tissues appear unremarkable. IMPRESSION: Left PICC line with the tip projecting in the left brachiocephalic vein. Dictated by: Ayaan Hamm M.D. on 01/07/2018 at 16:11 Approved by: Ayaan Hamm M.D. on 01/07/2018 at 16:15
== END ==
PROVIDERS: Family Provider Urology; PCP Internal Medicine; Visit Provider Internal Medicine Infectious Disease
DX: Z45.2 Encounter for adjustment and management of vascular access device (principal); T81.49XA Infection following a procedure, other surgical site, initial encounter; C61 Malignant neoplasm of prostate
CPT/HCPCS: 36415; 71046; 84153

== ENCOUNTER → 2018-01-12 10:31 | Outpatient (REF) | payer MEDICARE, OTHER, SELFPAY ==
[2018-01-12 10:43] LABS: Add Manual Diff / Slide Review NO; Basophils Percent Auto 0.9 % (0-2); Eosinophils Percent Auto 3.6 % (2-4); Hematocrit 42.6 % (41-53); Hemoglobin 14.2 g/dL (13.5-17.5); Mean Corpuscular HGB Conc 33.4 % (30-36); Mean Corpuscular Hemoglobin 30.4 PG (26-34); Mean Corpuscular Volume 91.2 fL (80-100); Monocytes Percent Auto 12.1 % (3-14); Neutrophils Absolute Auto 3000 /uL (3000-5900); Neutrophils Percent Auto 48.4 % (50-75); Platelet Count 208 X10^3/uL (150-400); Red Blood Cell Count 4.67 X10^6/uL (4.5-5.9); Red Cell Distribution Width 14.3 % (11.6-14.8); White Blood Cell Count 6.2 X10^3/uL (4.5-11.0)
[2018-01-12 10:54] LABS: Alanine Aminotransferase 31 IU/L (21-72); Estimated Glomerular Filt Rate > 60.0 mL/min (>60)
[2018-01-12 11:34] LABS: Vancomycin Trough 24.5 ug/mL (10-20)
== END ==
LOC: LAB 10:31
PROVIDERS: Family Provider Urology; PCP Internal Medicine; Visit Provider Internal Medicine Infectious Disease
DX: T81.40XA Infection following a procedure, unspecified, initial encounter (principal)
CPT/HCPCS: 80202; 82565; 84460; 85025

== ENCOUNTER → 2018-05-11 14:40 | Outpatient (CLI) | payer MEDICARE, OTHER, SELFPAY ==
[2018-05-11 16:02] LABS: Prostate Specific Antigen 1.32 ng/mL (0.10-4.00)
== END ==
PROVIDERS: Family Provider Internal Medicine; PCP Internal Medicine; Visit Provider Radiology Radiation Oncology
DX: Z85.46 Personal history of malignant neoplasm of prostate (principal)
CPT/HCPCS: 36415; 84153

== ENCOUNTER → 2018-08-24 11:24 | Outpatient (CLI) | payer MEDICARE, OTHER, SELFPAY ==
[2018-08-24 13:57] LABS: Prostate Specific Antigen 1.37 ng/mL (0.10-4.00)
== END ==
PROVIDERS: PCP Internal Medicine; Visit Provider Urology
DX: C61 Malignant neoplasm of prostate (principal)
CPT/HCPCS: 36415; 84153

== ENCOUNTER → 2019-03-04 10:24 | Outpatient (CLI) | payer MEDICARE, OTHER, SELFPAY ==
[2019-03-04 12:40] LABS: Prostate Specific Antigen 1.19 ng/mL (0.10-4.00)
== END ==
PROVIDERS: Family Provider Urology; PCP Internal Medicine; Visit Provider Radiology Radiation Oncology
DX: C61 Malignant neoplasm of prostate (principal)
CPT/HCPCS: 36415; 84153

== ENCOUNTER → 2019-09-21 11:19 | Outpatient (CLI) | payer MEDICARE, OTHER, SELFPAY ==
[2019-09-21 13:10] LABS: Prostate Specific Antigen 1.18 ng/mL (0.10-4.00)
== END ==
PROVIDERS: Family Provider Urology; PCP Internal Medicine; Referring Provider Urology; Visit Provider Urology
DX: Z85.46 Personal history of malignant neoplasm of prostate (principal)
CPT/HCPCS: 36415; 84153

== ENCOUNTER → 2020-03-17 14:51 | Outpatient (CLI) | payer MEDICARE, SELFPAY ==
[2020-03-17 15:55] LABS: Prostate Specific Antigen 1.07 ng/mL (0.10-4.00)
== END ==
PROVIDERS: Family Provider Urology; PCP Internal Medicine; Referring Provider Radiology Radiation Oncology; Visit Provider Radiology Radiation Oncology
DX: C61 Malignant neoplasm of prostate (principal)
CPT/HCPCS: 36415; 84153

== ENCOUNTER → 2020-03-21 12:16 | Outpatient (CLI) | payer MEDICARE, SELFPAY ==
[2020-03-21] MEDS: COVID-19 VACC #1, MRNA(MOD) 100 MCG/0.5 ML VIAL IM (12:25)
== END ==
PROVIDERS: Family Provider Urology; PCP Internal Medicine; Visit Provider Internal Medicine
DX: Z23 Encounter for immunization (principal)
CPT/HCPCS: 0011A; 91301

== ENCOUNTER → 2020-04-18 12:28 | Outpatient (CLI) | payer MEDICARE, SELFPAY ==
[2020-04-18] MEDS: COVID-19 VACC #2, MRNA(MOD) 100 MCG/0.5 ML VIAL IM (12:46)
== END ==
PROVIDERS: Family Provider Urology; PCP Internal Medicine; Visit Provider Internal Medicine
DX: Z23 Encounter for immunization (principal)
CPT/HCPCS: 0012A; 91301

== ENCOUNTER → 2020-04-19 12:51 | Outpatient (CLI) | payer MEDICARE, SELFPAY ==
[2020-04-19 14:02] LABS: Alanine Aminotransferase 69 IU/L (<50); Albumin 4.5 g/dL (3.5-5.0); Albumin Globulin Ratio 1.6 (1.0-2.8); Alkaline Phosphatase 101 U/L (38-126); Aspartate Aminotransferase 47 IU/L (17-59); BUN Creatinine Ratio 24.5 (6-22); Bilirubin Total 0.6 mg/dL (0.2-1.3); Blood Urea Nitrogen 26 mg/dL (9-20); Calcium 10.1 mg/dL (8.4-10.2); Carbon Dioxide 29 mmol/L (22-32); Chloride 105 mmol/L (98-107); Cholesterol 203 mg/dL (140-199); Estimated Glomerular Filt Rate > 60.0 mL/min (>60); Globulin 2.9 g/dL (1.7-4.1); Glucose 98 mg/dL (80-110); HDL Cholesterol 63 mg/dL (40-60); HEMOLYSIS < 15 (0-50); LDL Cholesterol Calculated 115 mg/dL (<100); Potassium 4.4 mmol/L (3.4-5.1); Sodium 140 mmol/L (137-145); Total Protein 7.4 g/dL (6.3-8.2); Triglycerides 126 mg/dL (35-150)
== END ==
PROVIDERS: Family Provider Urology; PCP Internal Medicine; Referring Provider Internal Medicine; Visit Provider Internal Medicine
DX: Z13.220 Encounter for screening for lipoid disorders (principal); Z13.1 Encounter for screening for diabetes mellitus
CPT/HCPCS: 36415; 80053; 80061

== ENCOUNTER → 2020-04-24 11:54 | Outpatient (CLI) | payer MEDICARE, SELFPAY ==
[2020-04-24 12:15] LABS: Add Manual Diff / Slide Review NO; Basophils Absolute Auto 100 /uL (0-100); Basophils Percent Auto 1.3 % (0-2); Eosinophils Absolute Auto 300 /uL (0-450); Eosinophils Percent Auto 3.9 % (2-4); Hematocrit 49.7 % (41-53); Hemoglobin 16.9 g/dL (13.5-17.5); Lymphocytes Absolute Auto 2600 /uL (1100-4500); Lymphocytes Percent Auto 35.8 % (25-40); Mean Corpuscular HGB Conc 34.1 % (30-36); Mean Corpuscular Volume 93.9 fL (80-100); Monocytes Absolute Auto 600 /uL (0-900); Monocytes Percent Auto 8.9 % (3-14); Neutrophils Absolute Auto 3600 /uL (1500-7000); Neutrophils Percent Auto 50.1 % (50-75); Platelet Count 177 X10^3/uL (150-400); Red Blood Cell Count 5.29 X10^6/uL (4.5-5.9); Red Cell Distribution Width 13.1 % (11.6-14.8); White Blood Cell Count 7.2 X10^3/uL (4.5-11.0)
[2020-04-24 12:42] LABS: NT-proBNP (BNP-Adult 18+) 85 pg/mL (<125)
[2020-04-24 14:32] LABS: Free T4, Direct Thyroxine 1.16 ng/dL (0.78-2.19)
[2020-04-24 14:46] LABS: Thyroid Stimulating Hormone 3.79 uIU/mL (0.47-4.68)
== END ==
PROVIDERS: Family Provider Urology; PCP Internal Medicine; Referring Provider Internal Medicine; Visit Provider Internal Medicine
DX: R06.00 Dyspnea, unspecified (principal); R63.5 Abnormal weight gain
CPT/HCPCS: 36415; 83880; 84439; 84443; 85025

== ENCOUNTER → 2020-08-14 10:59 | Outpatient (CLI) | payer MEDICARE, SELFPAY ==
--- NOTE | 2020-08-14 11:00 | DI.RAD.S_ITS ---
PROCEDURE: XR CHEST 2V INDICATIONS: shortness of breath TECHNIQUE: 2 views of the chest were acquired. COMPARISON: Merged With [facility], CR, XR CHEST 2V, 01/07/2018, 14:23. FINDINGS: Surgical changes and devices: None. Lungs and pleura: Scattered subsegmental scarring and/or atelectasis. No acute consolidation. No pleural effusions or pneumothorax. Mediastinum: Mediastinal contours are normal. Heart size is normal. Bones and chest wall: No suspicious bony abnormalities. Soft tissues appear unremarkable. IMPRESSION: No acute disease. Dictated by: Ayaan Hamm M.D. on 08/14/2020 at 12:20 Approved by: Ayaan Hamm M.D. on 08/14/2020 at 12:21
== END ==
PROVIDERS: Family Provider Urology; PCP Internal Medicine; Referring Provider Internal Medicine; Visit Provider Internal Medicine
DX: R06.02 Shortness of breath (principal)
CPT/HCPCS: 71046

== ENCOUNTER → 2020-08-15 16:06 | Outpatient (CLI) | payer MEDICARE, SELFPAY ==
[2020-08-15 19:20] LABS: COVID19 -Nasal RAPID Negative (Negative)
== END ==
PROVIDERS: Family Provider Urology; PCP Internal Medicine; Referring Provider Internal Medicine; Visit Provider Internal Medicine
DX: Z20.822 Contact with and (suspected) exposure to COVID-19 (principal)
CPT/HCPCS: 87635; C9803

== ENCOUNTER → 2020-08-16 13:05 | Outpatient (CLI) | payer MEDICARE, SELFPAY ==
--- NOTE | 2020-08-18 16:36 | P.PFT.S_ITS ---
Pulmonary Function Test Referral & Results Date Patient Seen: 08/16/20 Requesting provider: Dheeraj Tristan Results: The spirometry demonstrates an FVC of 4.67 L which is 84% of predicted. The FEV1 was measured at 2.98 L which is 73% of predicted. The FEV1/FVC ratio was 64 which is 87% of predicted. Following the administration of bronchodilator there was at 30% improvement in FEF 25-75%. Lung volumes show an SVC of 5.29 L which is 95% of predicted. The diffusing capacity was measured at 23.31 which is 55% of predicted. No hemoglobin value was provided, so no correction for potential anemia could be made, if appropriate. The maximum voluntary ventilation was normal Interpretation: This study demonstrates mild obstructive lung disease based on reduction FEV1 although FEV1/FVC ratio was relatively preserved. There is evidence of minimal improvement in small airway flow after bronchodilator based on change in FEF 25- 75% There is more marked reduction diffusing capacity suggesting more significant disease at the capillary alveolar level Clinical correlation suggested
== END ==
PROVIDERS: Family Provider Urology; PCP Internal Medicine; Referring Provider Internal Medicine; Visit Provider Internal Medicine
DX: R06.00 Dyspnea, unspecified (principal); Z87.891 Personal history of nicotine dependence; J98.8 Other specified respiratory disorders
CPT/HCPCS: 94060; 94726; 94729

== ENCOUNTER → 2020-09-04 08:50 | Outpatient (CLI) | payer MEDICARE, SELFPAY ==
[2020-09-04 10:36] LABS: COVID19 -Nasal RAPID Negative (Negative)
== END ==
PROVIDERS: Family Provider Urology; PCP Internal Medicine; Visit Provider Physician Assistant
DX: Z01.812 Encounter for preprocedural laboratory examination (principal); Z20.822 Contact with and (suspected) exposure to COVID-19
CPT/HCPCS: 87635

== ENCOUNTER → 2020-09-04 08:57 | Outpatient (CLI) | payer MEDICARE, SELFPAY ==
--- NOTE | 2020-09-05 14:46 | PM.TREADMILL ---
Cardiac Stress Test Report Referral & Results Date Patient Seen: 09/05/20 Requesting provider: Dheeraj Tristan Indication: Dyspnea with exertion Rest ECG: Unremarkable Procedure Note: Today following both written and verbal informed consent the patient was exercised according to a standard Kristian protocol patient went for a total of 6 minutes 17 seconds achieving a maximum heart rate of 144 maximum systolic blood pressure of 172. This is approximately 7.0 METS. Exercise was terminated at this point because of patient unable to continue. Patient was also given Cardiolite through a previously started Hep-Lock IV by the diagnostic imaging staff approximately 1 minute prior to the cessation of exercise. There are no ST-T segment changes Function aerobic impairment rates about 0 on the sedentary scale Normal heart rate and blood pressure response to exercise Impression: No evidence of ischemia. Average exercise capacity. Please see perfusion imaging report as well. Please note: Actual ECG tracings can be found in the PACS system.
--- NOTE | 2020-09-05 18:10 | DI.NM.S_ITS ---
DATE OF SERVICE: 09/04/2020 PROCEDURE PERFORMED: Exercise treadmill stress and rest myocardial perfusion imaging with gating to assess ejection fraction and regional wall motion. ORDERING PROVIDER: Dr. Dheeraj Tristan. INDICATIONS: The patient is a 75-year-old male with exertional dyspnea. EXERCISE TREADMILL TESTING: The patient was able to exercise for 6 minutes, 17 seconds on a standard Kristian protocol, suggesting mildly reduced exercise capacity with an RANI of +10%. He had a normal heart rate and blood pressure response to exercise, achieving a maximum heart rate of 144 BPM (99% of his predicted maximum). He had no chest discomfort. His resting ECG shows sinus rhythm with relatively normal ST segments, and there are no obvious ST-segment shifts with exercise, although there is considerable motion artifact. No obvious arrhythmias were seen. At the 5 minutes, 13 seconds of exercise, at a heart rate of 118 BPM, 25.7 millicuries of technetium-99m Myoview was injected and he was imaged 10 minutes later using a quantitated gated SPECT acquisition protocol. The day prior, while at rest, he was injected with 26.4 millicuries of technetium-99m Myoview was imaged 30 minutes later, again using a gated SPECT acquisition protocol. FINDINGS: 1. Raw data: There is fair myocardial tracer uptake. The lung/heart ratio is normal at 0.35 with a normal TID ratio of 1.04. 2. Quantitated gated SPECT: Post-stress ejection fraction is estimated at 72% without any focal wall motion abnormality. Resting ejection fraction is also 72% with a resting end-diastolic volume of 109 mL. 3. Myocardial perfusion imaging: Post-stress supine images shows a moderate perfusion defect throughout the inferior wall from apex to base in a pattern that would be consistent with diaphragmatic attenuation, supported by its complete resolution on the prone images, revealing a normal, homogeneous perfusion pattern. The resting images show an essentially identical perfusion pattern to that of the post-stress supine images, with minimal, if any improvement. IMPRESSION: 1. Probable normal myocardial perfusion study. 2. Moderate, predominantly fixed inferior wall perfusion defect that completely resolves on prone imaging, most consistent with diaphragmatic attenuation artifact. While a previous nontransmural infarction with minimal zhao-infarct ischemia cannot be entirely excluded, the absence of any angina, ECG abnormality, or wall motion abnormality would mitigate against this. 3. Normal left ventricular systolic function without any focal wall motion abnormality. 4. Mildly reduced exercise capacity without angina or ECG evidence of ischemia. Krzysztof Mayers - JOHN/aileen/cheng doc#: [id number]/job#: [id number] dd: 09/05/2020 17:05:00 dt: 09/05/2020 18:01:00 DICTATING MD/COPIES TO: Cory Young MD; Dheeraj Tristan MD COPIES MNE: ASHLEY;
== END ==
PROVIDERS: Family Provider Urology; PCP Internal Medicine; Referring Provider Internal Medicine; Visit Provider Internal Medicine
DX: Z01.812 Encounter for preprocedural laboratory examination (principal); R06.00 Dyspnea, unspecified; Z20.822 Contact with and (suspected) exposure to COVID-19
CPT/HCPCS: 78452; 87635; 93016; 93017; 93018; C9803; A9502

== ENCOUNTER → 2020-09-12 12:55 | Outpatient (CLI) | payer MEDICARE, SELFPAY ==
[2020-09-12 14:44] LABS: Prostate Specific Antigen 1.17 ng/mL (0.10-4.00)
== END ==
PROVIDERS: Family Provider Urology; PCP Internal Medicine; Referring Provider Urology; Visit Provider Urology
DX: C61 Malignant neoplasm of prostate (principal)
CPT/HCPCS: 36415; 84153

== ENCOUNTER → 2020-09-21 13:46 | Outpatient (CLI) | payer MEDICARE, SELFPAY ==
--- NOTE | 2020-09-21 | DI.CT.S_ITS ---
PROCEDURE: CT KIDNEY URETER BLADDER (KUB) INDICATIONS: CALCULUS OF KIDNEY TECHNIQUE: Axial sections were acquired from the lung bases to the pubic symphysis. Coronal and sagittal reformats were performed. For radiation dose reduction, the following was used: automated exposure control, adjustment of mA and/or kV according to patient size. COMPARISON:[facility], CT, KIDNEY/ URETER/BLADDER, 12/14/2006, 20:14. FINDINGS: Image quality: Excellent. Lung bases: Unremarkable. Heart: No significant findings. URINARY: Right Kidney: Nonobstructing lower pole stone measuring 9 mm in maximum diameter. No hydronephrosis. Multiple cysts. Right Ureter: No hydroureter. Left Kidney: 2 nonobstructing lower pole stones immediately subjacent to each other, measuring 11 mm and 8 mm respectively. Nonobstructing renal pelvis stone measuring 10 mm in diameter. No hydronephrosis. Left Ureter: No hydroureter. Bladder: Normal wall thickness. No stones. ABDOMEN: Liver: Unremarkable. Gallbladder: Unremarkable. Biliary ducts: Unremarkable. Pancreas: Unremarkable. Spleen: Unremarkable. Adrenal Glands: Unremarkable. Stomach and Bowel: Extensive sigmoid diverticulosis without evidence of diverticulitis. Peritoneum: No abnormal intraperitoneal fluid. No free air. Ventral Wall: No hernia. Abdominal Nodes: No enlarged retroperitoneal or mesenteric lymph nodes. Vessels: Mild aneurysmal dilatation of the infrarenal abdominal aorta, measuring 3.3 cm. Mild aneurysmal dilatation of the right common iliac artery, measuring 2.2 cm. Mild aneurysmal dilatation of the left common iliac artery, measuring 2.3 cm. PELVIS: Pelvic Organs: Prostate implant seeds. Pelvic Nodes: Unremarkable. Miscellaneous: No inguinal hernias are seen. Bones: Extensive lumbar degenerative change.1 IMPRESSION: 1. Bilateral sizable nonobstructing renal stones as well as a 10 mm nonobstructing left renal pelvic stone. No hydronephrosis. 2. Mild aneurysmal dilatation of the abdominal aorta and bilateral common iliac arteries. 3. Extensive sigmoid diverticulosis without evidence of diverticulitis. Dictated by: Kain Maldonado M.D. on 09/21/2020 at 15:35 Approved by: Kain Madlonado M.D. on 09/21/2020 at 15:44
[2020-09-21 14:46] LABS: BUN Creatinine Ratio 22.6 (6-22); Blood Urea Nitrogen 24 mg/dL (9-20); Estimated Glomerular Filt Rate > 60.0 mL/min (>60)
== END ==
PROVIDERS: Family Provider Urology; PCP Internal Medicine; Referring Provider Urology; Visit Provider Urology
DX: N20.0 Calculus of kidney (principal); K57.30 Diverticulosis of large intestine without perforation or abscess without bleeding; I71.4 Abdominal aortic aneurysm, without rupture; I72.3 Aneurysm of iliac artery; R06.00 Dyspnea, unspecified; J43.2 Centrilobular emphysema; J98.4 Other disorders of lung; J98.11 Atelectasis
CPT/HCPCS: 36415; 71250; 74176; 82565; 84520

== ENCOUNTER → 2020-09-21 13:54 | Outpatient (CLI) | payer MEDICARE, SELFPAY ==
--- NOTE | 2020-09-21 13:55 | DI.CT.S_ITS ---
PROCEDURE: CT CHEST HIGH RESOLUTION INDICATIONS: Dyspnea TECHNIQUE: Noncontrast 1.0 and 5.0 mm thick contiguous axial sections from the pulmonary apex to the posterior costophrenic angles, with 7 mm thick coronal and sagittal MIP reformats. 1 mm thick dynamic expiratory images acquired through the upper, mid, and lower lungs. 1.0 mm thick axial sections acquired from the malcolm to the posterior costophrenic angles in the prone end-inspiration position. For radiation dose reduction, the following was used: automated exposure control, adjustment of mA and/or kV according to patient size. COMPARISON: [facility], CT, IVP (ABD & PEL WWO CONTRAST), 03/21/2017, 12:43. FINDINGS: Lungs: Upper lobe predominant centrilobular emphysema is present. No acute consolidation. Airway thickening in keeping with nonspecific bronchitis and/or reactive airways disease. Patchy and streaky ill-defined consolidative and ground-glass opacities in both lung bases. No honeycombing is seen. No definite air trapping. No tree-in-bud opacities identified. No definite traction bronchiectasis is seen. Pleura: No pleural effusion or pneumothorax. Heart: Heart size is normal. No pericardial effusion. Chest nodes: Normal. Thyroid gland: Normal. Aorta: Normal in size. Pulmonary arteries: Normal Esophagus: Normal Upper abdomen: Partially visualized presumed right renal cyst technically indeterminate. Bones: Diffuse spondylitic changes and facet arthropathy. IMPRESSION: Severe upper lobe predominant centrilobular emphysema. Airway thickening in keeping with nonspecific bronchitis and/or reactive airways disease. Mild bibasilar scarring and streaky atelectasis, slightly increased since the prior study from 03/21/17 (where included on the prior study). No specific fibrotic changes. Dictated by: Ayaan Hamm M.D. on 09/21/2020 at 15:11 Approved by: Ayaan Hamm M.D. on 09/21/2020 at 15:21
== END ==
PROVIDERS: Family Provider Urology; PCP Internal Medicine; Referring Provider Internal Medicine; Visit Provider Internal Medicine
DX: R06.00 Dyspnea, unspecified (principal); J43.2 Centrilobular emphysema; J98.4 Other disorders of lung; J98.11 Atelectasis
CPT/HCPCS: 71250

== ENCOUNTER → 2021-01-05 14:09 | Outpatient (CLI) | payer MEDICARE, SELFPAY ==
[2021-01-05] MEDS: COVID-19 VACC #3, MRNA(MOD) 50 MCG/0.25 ML VIAL IM (14:16)
== END ==
PROVIDERS: Family Provider Urology; PCP Internal Medicine; Visit Provider Internal Medicine
DX: Z23 Encounter for immunization (principal)
CPT/HCPCS: 0013A; 91301

== ENCOUNTER 2021-04-22 17:39 | Emergency (ER) | payer MEDICARE, SELFPAY ==
[2021-04-22 17:43] VITALS: BMI 28.5
--- NOTE | 2021-04-22 17:51 | DI.RAD.S_ITS ---
PROCEDURE: XR ABDOMEN 1V INDICATIONS: Abdominal pain, constipation TECHNIQUE: One view of the abdomen acquired. COMPARISON: [facility], CT, CT KIDNEY URETER BLADDER (KUB), 09/21/2020, 14:14. [facility], CR, ABDOMEN 1 VIEW, 12/14/2006, 20:22. FINDINGS: Lower lung zone: Bibasilar atelectasis. Bowel: Nonspecific bowel gas pattern. Soft tissues: Redemonstrated nephrolithiasis. Visualized solid organ contours appear normal in size. Bones: No suspicious bony lesions. IMPRESSION: Nonspecific bowel gas pattern. Dictated by: Edgadr Monryo M.D. on 04/22/2021 at 18:25 Approved by: Edgard Monroy M.D. on 04/22/2021 at 18:27
[2021-04-22 17:52] VITALS: BP 176/88; PULSE 81; RESP 14; TEMP 36.3; O2SAT 97
[2021-04-22 18:00] VITALS: BP 129/90; PULSE 78; O2SAT 95
--- NOTE | 2021-04-22 18:09 | ED.ABDPAIN ---
HPI - Abdominal Pain <Harvinder Campos PA-C - Last Filed: 04/22/21 20:03> General Chief Complaint: Abdominal Pain Stated Complaint: constipated for 5/6 days Time Seen by Provider: 04/22/21 17:49 Source: patient Mode of arrival: Ambulatory History of Present Illness HPI narrative: Patient is a 75-year-old male presenting to the emergency department today for evaluation of abdominal pain and constipation. Patient states that he has not had a bowel movement for the past 5-6 days, noting that he is also having difficulty passing gas. He states that his pain was worse earlier today, noting that it has been the most significant in the left lower quadrant of the abdomen. He does report a history constipation states that this is the worst that it has been. He states he began to take Spiriva approximately 4 months ago but denies any new medications more recently. Additionally, he states that he has not been trying any new foods recently and denies any trauma to the abdomen. No fever, chills, chest pain, cough, shortness of breath, nausea, vomiting, diarrhea, dysuria, hematuria, rectal pain, rectal bleeding, or any other concerning symptoms reported. No further concerns were reported at this time. Related Data Home Medications Medication Instructions Recorded Confirmed multivitamin (Multiple Vitamins) 1 tab PO QPM #0 03/25/17 09/19/20 vit C 250 mg-vit E 90 mg-zinc 40 1 ea PO QPM #0 03/25/17 09/19/20 mg-copper 1 [id number] capsule (PreserVision AREDS-2) acetaminophen 500 mg tablet 500 mg PO Q6H PRN 08/25/17 09/19/20 (Tylenol Extra Strength) Respironics DreamStation BIPAP #1 ea 04/24/20 09/19/20 magnesium citrate 100 mg capsule 100 mg PO DAILY 04/24/20 09/19/20 potassium citrate 5 mEq (540 mg) 5 meq PO QPM tab 04/24/20 09/19/20 tablet,extended release ibuprofen 200 mg tablet (Advil) 400 mg PO PRN PRN tab 08/14/20 09/19/20 Previous Rx's Medication Instructions Recorded tamsulosin 0.4 mg capsule (Flomax) 0.4 mg PO DAILY #10 cap 04/22/21 Allergies Allergy/AdvReac Type Severity Reaction Status Date / Time No Known Drug Allergies Allergy Verified 09/19/20 11:52 Review of Systems <Harvinder Campos PA-C - Last Filed: 04/22/21 20:03> Constitutional Constitutional: Denies chills, Denies fatigue, Denies fever(s), Denies frequent falls, Denies lethargy and Denies weakness Eyes Eyes: Denies loss of vision ENT Ears, Nose, Mouth, and Throat: Denies dizziness and Denies neck pain Cardiovascular Cardiovascular: Denies chest pain, Denies irregular heart rhythm, Denies lightheadedness, Denies palpitations, Denies dyspnea, Denies dyspnea on exertion and Denies orthopnea Respiratory Respiratory: Denies cough, Denies dyspnea, Denies dyspnea on exertion and Denies wheezing Gastrointestinal Gastrointestinal: Reports abdominal pain, Denies change in bowel habits, Reports constipation, Denies diarrhea, Denies nausea and Denies vomiting Genitourinary Genitourinary: Denies hematuria, Denies flank pain, Denies urinary incontinence and Denies urinary urgency Musculoskeletal Musculoskeletal: Denies back pain, Denies muscle weakness, Denies neck pain, Denies numbness and Denies tingling Integumentary/Breasts Skin/Breast: Denies pruritus, Denies erythema, Denies rash and Denies wounds Neurologic Neurologic: Denies behavioral changes, Denies confusion, Denies dizziness, Denies frequent falls, Denies loss of vision, Denies numbness, Denies tingling and Denies weakness Psychiatric Psychiatric: Denies behavioral changes and Denies confusion Endocrine Endocrine: Denies fatigue and Denies palpitations Allergic/Immunologic Allergic/Immunologic: Denies wheezing Patient History <Harvinder Campos PA-C - Last Filed: 04/22/21 20:03> Medical History Acne (~1959) Ankle pain (~1987) Behaviorally induced insufficient sleep syndrome Carpal tunnel syndrome (~2011) Chronic back pain (~1997) Degenerative disc disease Elevated prostate specific antigen (PSA) (01/31/15) Excessive daytime sleepiness Fracture of wrist (~1966) History of colon polyps (~2009) History of kidney stones History of recurrent ear infection Kidney stones Measles (~1950) 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 Mumps (~1950) Obstructive sleep apnea of adult Plantar warts (~2009) Primary insomnia Rheumatoid arthritis (~2010) Ruptured tympanic membrane Shortness of breath Snoring Vision disorder Surgical History History of back surgery History of carpal tunnel repair (~2011) History of tonsillectomy (~1957) Status post bunionectomy (~2000) Status post hernia repair (~1998) Status post knee surgery (~2007) Family History Brother Age: 76 History of prostate cancer Father History of heart attack Social History marital status: details: tiffany Marion number of children: 1 household members: spouse lives independently: Yes caregiver/support person: No housing: house pets and animals: No education level: other (BA) occupational status: other (Retired) current occupational exposures/hazards: No 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 [place], [place]. [place]. [place]. [place] cruise. [place] and [place].) leisure activities: other (traveling, boating, sailing. ) Smoking Status: Former smoker Tobacco: How many years used: 55 Smokeless tobacco user: other (Cigarettes) quit status: has quit before (Semi quit before) second hand exposure: Yes (When younger.) alcohol intake: current (Occasionally) substance use type: does not use Smoking Status: Former smoker alcohol intake frequency: a few times a month Substance Use Type: does not use Exam <Harvinder Campos PA-C - Last Filed: 04/22/21 20:03> Narrative Exam Narrative: GENERAL: 75 year old patient appears stated age. Well-developed patient, in no acute distress. HEAD: Atraumatic. Normocephalic. EYES: Pupils equal round and reactive. Extraocular motions intact. No scleral icterus. No injection or drainage. ENT: Nose without bleeding, purulent drainage. Throat without erythema, tonsillar hypertrophy or exudate. Airway patent. NECK: Trachea midline. Non tender CARDIOVASCULAR: Regular rate and rhythm without murmurs, gallops, or rubs. RESPIRATORY: Clear to auscultation. Breath sounds equal bilaterally. No wheezes, rales, or rhonchi. GASTROINTESTINAL: Abdomen soft, nondistended. Tenderness to palpation appreciated throughout all 4 quadrants of the abdomen, most noticeable in the left lower quadrant of the abdomen. Dullness to percussion appreciated in the left lower quadrant and right lower quadrant of the abdomen. No masses appreciated throughout the abdomen. EXTREMITIES: No edema or joint tenderness. BACK: Nontender without deformity or crepitance. No flank tenderness. NEURO: AOx3. SKIN: No rash or erythema of visible areas Initial Vital Signs Initial Vital Signs: Vital Signs Temperature 97.4 F L 04/22/21 17:52 Pulse Rate 81 04/22/21 17:52 Respiratory Rate 14 04/22/21 17:52 Blood Pressure 176/88 H 04/22/21 17:52 Pulse Oximetry 97 04/22/21 17:52 <Jacky Darby DO - Last Filed: 04/23/21 00:14> Initial Vital Signs Initial Vital Signs: Vital Signs Temperature 97.4 F L 04/22/21 17:52 Pulse Rate 81 04/22/21 17:52 Respiratory Rate 14 04/22/21 17:52 Blood Pressure 176/88 H 04/22/21 17:52 Pulse Oximetry 97 04/22/21 17:52 Course <Harvinder Campos PA-C - Last Filed: 04/22/21 20:03> Course Course Narrative: CBC, CMP, lipase, and abdominal x-ray obtained. Mineral oil enema administered, patient states he has yet to have bowel movement following 20 minutes after administration. Discussed results of CMP with patient informed him that since August of 2020 his GFR fell from over 60 to 39.6 today and that his creatinine today was 1.7. Informed the patient that I will be moving forward with a CT KUB and obtaining a urinalysis for further evaluation. Transfer of care from Harvinder Campos PA-C to Jacky Darby DO at 1999, 04/22/21. Orders Ordered: ED Orders 04/22/21 17:51 XR abdomen 1V Stat 04/22/21 18:15 CBC Auto Diff [Complete Blood Count AUTO DIFF] Stat CMP [Comprehensive Metabolic Panel] Stat Lipase Stat 04/22/21 19:27 CT kidney ureter bladder (KUB) Stat 04/22/21 20:00 Creatinine Urine Random Stat Sodium Urine Random Stat Urine Culture Stat Urine Microscopic Stat Discontinued Medications Acetaminophen (Acetaminophen 325 Mg Tablet) 650 mg PO Q4HR PRN PRN Reason: Fever/Mild Pain (1-3) Last Admin: 04/22/21 20:57 Dose: 650 mg Documented by: CHEN Bisacodyl (Bisacodyl 10 Mg Supp) 10 mg SD NOW ONE Stop: 04/22/21 20:37 Last Admin: 04/22/21 20:56 Dose: 10 mg Documented by: CHEN Sodium Chloride (Normal Saline 0.9%) 1,000 mls @ 1,000 mls/hr IV BOLUS ONE Stop: 04/22/21 20:27 Last Infusion: 04/22/21 21:19 Dose: 0 mls/hr Documented by: Admin: 04/22/21 19:52 Dose: 1,000 mls/hr Documented by: PAM Magnesium Citrate (Magnesium Citrate 300 Ml Solution) 300 ml PO NOW ONE Stop: 04/22/21 22:08 Last Admin: 04/22/21 22:35 Dose: 300 ml Documented by: PAM Mineral Oil (Mineral Oil 1 Each Enema) 1 each SD NOW ONE Stop: 04/22/21 18:41 Last Admin: 04/22/21 18:50 Dose: 1 each Documented by: CHEN Vital Signs Vital signs: Vital Signs - 8 hr 04/22/21 17:52 04/22/21 18:00 04/22/21 18:30 Temperature 97.4 F L Pulse Rate 81 78 74 Respiratory Rate 14 Blood Pressure 176/88 H 129/90 Pulse Oximetry 97 95 93 04/22/21 22:35 Temperature Pulse Rate 72 Respiratory Rate 16 Blood Pressure 124/80 Pulse Oximetry 100 <Jacky Darby DO - Last Filed: 04/23/21 00:14> Course Course Narrative: CBC, CMP, lipase, and abdominal x-ray obtained. Mineral oil enema administered, patient states he has yet to have bowel movement following 20 minutes after administration. Discussed results of CMP with patient informed him that since August of 2020 his GFR fell from over 60 to 39.6 today and that his creatinine today was 1.7. Informed the patient that I will be moving forward with a CT KUB and obtaining a urinalysis for further evaluation. Transfer of care from Harvinder Campos PA-C to Jacky Darby DO at 1999, 04/22/21. 1999 ([place]) I have reviewed the clinical course up until this point performed an independent history and physical exam. Patient does have a large stool burden but no evidence of obstruction and pain is well controlled. Urine shows no sign of infection. CT KUB demonstrates a large stone and associated hydro. Patient states that that stone has been present for least a few years and in reviewing old ultrasounds it appears to have been present for least 2-3 years. I have discussed the case with on-call Urology as [facility] who states there are no indications for the need of transfer or an emergent procedure but states he will put in for urgent referral with his urology clinic tomorrow. He does request that I start the patient on Flomax. Orders Ordered: ED Orders 04/22/21 17:51 XR abdomen 1V Stat 04/22/21 18:15 CBC Auto Diff [Complete Blood Count AUTO DIFF] Stat CMP [Comprehensive Metabolic Panel] Stat Lipase Stat 04/22/21 19:27 CT kidney ureter bladder (KUB) Stat 04/22/21 20:00 Creatinine Urine Random Stat Sodium Urine Random Stat Urine Culture Stat Urine Microscopic Stat Discontinued Medications Acetaminophen (Acetaminophen 325 Mg Tablet) 650 mg PO Q4HR PRN PRN Reason: Fever/Mild Pain (1-3) Last Admin: 04/22/21 20:57 Dose: 650 mg Documented by: CHEN Bisacodyl (Bisacodyl 10 Mg Supp) 10 mg SD NOW ONE Stop: 04/22/21 20:37 Last Admin: 04/22/21 20:56 Dose: 10 mg Documented by: CHEN Sodium Chloride (Normal Saline 0.9%) 1,000 mls @ 1,000 mls/hr IV BOLUS ONE Stop: 04/22/21 20:27 Last Infusion: 04/22/21 21:19 Dose: 0 mls/hr Documented by: Admin: 04/22/21 19:52 Dose: 1,000 mls/hr Documented by: PAM Magnesium Citrate (Magnesium Citrate 300 Ml Solution) 300 ml PO NOW ONE Stop: 04/22/21 22:08 Last Admin: 04/22/21 22:35 Dose: 300 ml Documented by: PAM Mineral Oil (Mineral Oil 1 Each Enema) 1 each SD NOW ONE Stop: 04/22/21 18:41 Last Admin: 04/22/21 18:50 Dose: 1 each Documented by: CHEN Vital Signs Vital signs: Vital Signs - 8 hr 04/22/21 17:52 04/22/21 18:00 04/22/21 18:30 Temperature 97.4 F L Pulse Rate 81 78 74 Respiratory Rate 14 Blood Pressure 176/88 H 129/90 Pulse Oximetry 97 95 93 04/22/21 22:35 Temperature Pulse Rate 72 Respiratory Rate 16 Blood Pressure 124/80 Pulse Oximetry 100 MDM - Abdominal Pain <Harvinder Campos PA-C - Last Filed: 04/22/21 20:03> Lab Data Result diagrams: 04/22/21 18:15 04/22/21 18:15 Labs: Lab Results 04/22/21 04/22/21 04/22/21 Range/Units 18:15 18:15 20:00 WBC 10.5 (4.5-11.0) X10^3/uL RBC 5.25 (4.5-5.9) X10^6/uL Hgb 16.4 (13.5-17.5) g/dL Hct 48.1 (41-53) % MCV 91.5 (80-100) fL MCH 31.3 (26-34) PG MCHC 34.2 (30-36) % RDW 13.5 (11.6-14.8) % Plt Count 152 (150-400) X10^3/uL Neut % (Auto) 74.5 (50-75) % Lymph % (Auto) 14.0 L (25-40) % Smith % (Auto) 10.5 (3-14) % Eos % (Auto) 0.2 L (2-4) % Baso % (Auto) 0.8 (0-2) % Neut # (Auto) 7800 H (2908-3492) /uL Lymph # (Auto) 1500 (2070-0897) /uL Smith # (Auto) 1100 H (0-900) /uL Eos # (Auto) 0 (0-450) /uL Baso # (Auto) 100 (0-100) /uL Sodium 134 L (137-145) mmol/L Potassium 4.2 (3.4-5.1) mmol/L Chloride 105 (98-107) mmol/L Carbon Dioxide 23 (22-32) mmol/L BUN 21 H (9-20) mg/dL Creatinine 1.70 H (0.66-1.25) mg/dL Estimated GFR 39.6 L (>60) mL/min BUN/Creatinine Ratio 12.4 (6-22) Glucose 117 H (80-110) mg/dL Calcium 9.7 (8.4-10.2) mg/dL Total Bilirubin 1.4 H (0.2-1.3) mg/dL AST 30 (17-59) IU/L ALT 32 (<50) IU/L Alkaline Phosphatase 85 (38-126) U/L Total Protein 7.8 (6.3-8.2) g/dL Albumin 4.5 (3.5-5.0) g/dL Globulin 3.3 (1.7-4.1) g/dL Albumin/Globulin Ratio 1.4 (1.0-2.8) Lipase 45 (23-300) U/L Urine RBC (0-5/HPF) Urine WBC (0-5/HPF) Urine Bacteria (None) Ur Culture Indicated? Ur Random Sodium 35 (30-90) mmol/L Urine Creatinine 131.1 mg/dL 04/22/21 Range/Units 20:00 WBC (4.5-11.0) X10^3/uL RBC (4.5-5.9) X10^6/uL Hgb (13.5-17.5) g/dL Hct (41-53) % MCV (80-100) fL MCH (26-34) PG MCHC (30-36) % RDW (11.6-14.8) % Plt Count (150-400) X10^3/uL Neut % (Auto) (50-75) % Lymph % (Auto) (25-40) % Smith % (Auto) (3-14) % Eos % (Auto) (2-4) % Baso % (Auto) (0-2) % Neut # (Auto) (1636-2054) /uL Lymph # (Auto) (3507-8408) /uL Smith # (Auto) (0-900) /uL Eos # (Auto) (0-450) /uL Baso # (Auto) (0-100) /uL Sodium (137-145) mmol/L Potassium (3.4-5.1) mmol/L Chloride (98-107) mmol/L Carbon Dioxide (22-32) mmol/L BUN (9-20) mg/dL Creatinine (0.66-1.25) mg/dL Estimated GFR (>60) mL/min BUN/Creatinine Ratio (6-22) Glucose (80-110) mg/dL Calcium (8.4-10.2) mg/dL Total Bilirubin (0.2-1.3) mg/dL AST (17-59) IU/L ALT (<50) IU/L Alkaline Phosphatase (38-126) U/L Total Protein (6.3-8.2) g/dL Albumin (3.5-5.0) g/dL Globulin (1.7-4.1) g/dL Albumin/Globulin Ratio (1.0-2.8) Lipase (23-300) U/L Urine RBC 10-30/hpf H (0-5/HPF) Urine WBC None seen (0-5/HPF) Urine Bacteria None seen (None) Ur Culture Indicated? Cult not indicated Ur Random Sodium (30-90) mmol/L Urine Creatinine mg/dL Point of care testing: Urine Dip Bedside Urine Glucose Negative Bedside Urine Bilirubin - Negative Bedside Urine Ketone +/- 5 Urine Specific [place] 1.015 Bedside Urine Occult Blood +++ Bedside Urine pH 6.0 Bedside Urine Protein +/- 15 Bedside Urine Urobilinogen - Negative Bedside Urine Nitrite - Negative Bedside Urine Leukocytes - Negative Esterase <Jacky Darby, DO - Last Filed: 04/23/21 00:14> Lab Data Labs: Lab Results 04/22/21 04/22/21 04/22/21 Range/Units 18:15 18:15 20:00 WBC 10.5 (4.5-11.0) X10^3/uL RBC 5.25 (4.5-5.9) X10^6/uL Hgb 16.4 (13.5-17.5) g/dL Hct 48.1 (41-53) % MCV 91.5 (80-100) fL MCH 31.3 (26-34) PG MCHC 34.2 (30-36) % RDW 13.5 (11.6-14.8) % Plt Count 152 (150-400) X10^3/uL Neut % (Auto) 74.5 (50-75) % Lymph % (Auto) 14.0 L (25-40) % Smith % (Auto) 10.5 (3-14) % Eos % (Auto) 0.2 L (2-4) % Baso % (Auto) 0.8 (0-2) % Neut # (Auto) 7800 H (0928-6350) /uL Lymph # (Auto) 1500 (5593-8941) /uL Smith # (Auto) 1100 H (0-900) /uL Eos # (Auto) 0 (0-450) /uL Baso # (Auto) 100 (0-100) /uL Sodium 134 L (137-145) mmol/L Potassium 4.2 (3.4-5.1) mmol/L Chloride 105 (98-107) mmol/L Carbon Dioxide 23 (22-32) mmol/L BUN 21 H (9-20) mg/dL Creatinine 1.70 H (0.66-1.25) mg/dL Estimated GFR 39.6 L (>60) mL/min BUN/Creatinine Ratio 12.4 (6-22) Glucose 117 H (80-110) mg/dL Calcium 9.7 (8.4-10.2) mg/dL Total Bilirubin 1.4 H (0.2-1.3) mg/dL AST 30 (17-59) IU/L ALT 32 (<50) IU/L Alkaline Phosphatase 85 (38-126) U/L Total Protein 7.8 (6.3-8.2) g/dL Albumin 4.5 (3.5-5.0) g/dL Globulin 3.3 (1.7-4.1) g/dL Albumin/Globulin Ratio 1.4 (1.0-2.8) Lipase 45 (23-300) U/L Urine RBC (0-5/HPF) Urine WBC (0-5/HPF) Urine Bacteria (None) Ur Culture Indicated? Ur Random Sodium 35 (30-90) mmol/L Urine Creatinine 131.1 mg/dL 04/22/21 Range/Units 20:00 WBC (4.5-11.0) X10^3/uL RBC (4.5-5.9) X10^6/uL Hgb (13.5-17.5) g/dL Hct (41-53) % MCV (80-100) fL MCH (26-34) PG MCHC (30-36) % RDW (11.6-14.8) % Plt Count (150-400) X10^3/uL Neut % (Auto) (50-75) % Lymph % (Auto) (25-40) % Smith % (Auto) (3-14) % Eos % (Auto) (2-4) % Baso % (Auto) (0-2) % Neut # (Auto) (7282-4830) /uL Lymph # (Auto) (5156-8324) /uL Smith # (Auto) (0-900) /uL Eos # (Auto) (0-450) /uL Baso # (Auto) (0-100) /uL Sodium (137-145) mmol/L Potassium (3.4-5.1) mmol/L Chloride (98-107) mmol/L Carbon Dioxide (22-32) mmol/L BUN (9-20) mg/dL Creatinine (0.66-1.25) mg/dL Estimated GFR (>60) mL/min BUN/Creatinine Ratio (6-22) Glucose (80-110) mg/dL Calcium (8.4-10.2) mg/dL Total Bilirubin (0.2-1.3) mg/dL AST (17-59) IU/L ALT (<50) IU/L Alkaline Phosphatase (38-126) U/L Total Protein (6.3-8.2) g/dL Albumin (3.5-5.0) g/dL Globulin (1.7-4.1) g/dL Albumin/Globulin Ratio (1.0-2.8) Lipase (23-300) U/L Urine RBC 10-30/hpf H (0-5/HPF) Urine WBC None seen (0-5/HPF) Urine Bacteria None seen (None) Ur Culture Indicated? Cult not indicated Ur Random Sodium (30-90) mmol/L Urine Creatinine mg/dL Point of care testing: Urine Dip Bedside Urine Glucose Negative Bedside Urine Bilirubin - Negative Bedside Urine Ketone +/- 5 Urine Specific [place] 1.015 Bedside Urine Occult Blood +++ Bedside Urine pH 6.0 Bedside Urine Protein +/- 15 Bedside Urine Urobilinogen - Negative Bedside Urine Nitrite - Negative Bedside Urine Leukocytes - Negative Esterase Discharge Plan Departure Patient Disposition: Home Clinical Impression: Constipation, Kidney stone on left side, Acute kidney failure Instructions: DI for Constipation Activity Restrictions/Additional Instructions: *You have been diagnosed with [ abdominal pain due to constipation as well as large obstructive kidney stone on your left side *What to do: *Take over the counter medications as directed: 1. Metamucil - bulk forming laxative adds fiber 2. Colace - softens your stool 3. Dulcolax Suppository - stimulates your bowels from the bottom *Follow up with your urologist as soon as possible, as we discussed I talked with the on-call urologist at [facility] who will relay a message requesting an urgent referral. Please call tomorrowfor appointment *Return to ER if you should have any new, worsening or concerning symptoms *Drink plenty of water and eat foods high in fiber *Try to be as active as possible, consider walking your dog daily Prescriptions: New tamsulosin [Flomax] 0.4 mg capsule 0.4 mg PO DAILY Qty: 10 0RF No Action multivitamin [Multiple Vitamins] 1 EACH tablet 1 tab PO QPM Qty: 0 0RF vit C,[id number]-[id number] [PreserVision AREDS-2] 1 EACH capsule 1 ea PO QPM Qty: 0 0RF acetaminophen [Tylenol Extra Strength] 500 mg tablet 500 mg PO Q6H PRN (Reason: Pain, Mild) 0RF potassium citrate 5 mEq (540 mg) tablet extended release 5 meq PO QPM 0RF magnesium citrate 100 mg capsule 100 mg PO DAILY 0RF ibuprofen [Advil] 200 mg tablet 400 mg PO PRN PRN (Reason: Pain (Scale Score 7-10)) 0RF (DME) Respironics DreamStation BIPAP Qty: 1 0RF Dose Instruction: As directed Label Comments: Pressure: 12-18 cmH2O DME: [facility] Rx Instructions: As directed Referrals: Dheeraj Tristan MD [Primary Care Provider] -
[2021-04-22 18:29] LABS: Add Manual Diff / Slide Review NO; Basophils Absolute Auto 100 /uL (0-100); Basophils Percent Auto 0.8 % (0-2); Eosinophils Absolute Auto 0 /uL (0-450); Eosinophils Percent Auto 0.2 % (2-4); Hematocrit 48.1 % (41-53); Hemoglobin 16.4 g/dL (13.5-17.5); Lymphocytes Absolute Auto 1500 /uL (1100-4500); Mean Corpuscular HGB Conc 34.2 % (30-36); Mean Corpuscular Hemoglobin 31.3 PG (26-34); Mean Corpuscular Volume 91.5 fL (80-100); Monocytes Absolute Auto 1100 /uL (0-900); Monocytes Percent Auto 10.5 % (3-14); Neutrophils Absolute Auto 7800 /uL (1500-7000); Neutrophils Percent Auto 74.5 % (50-75); Platelet Count 152 X10^3/uL (150-400); Red Blood Cell Count 5.25 X10^6/uL (4.5-5.9); Red Cell Distribution Width 13.5 % (11.6-14.8); White Blood Cell Count 10.5 X10^3/uL (4.5-11.0)
[2021-04-22 18:30] VITALS: PULSE 74; O2SAT 93
[2021-04-22 18:39] LABS: Alanine Aminotransferase 32 IU/L (<50); Albumin 4.5 g/dL (3.5-5.0); Albumin Globulin Ratio 1.4 (1.0-2.8); Alkaline Phosphatase 85 U/L (38-126); Aspartate Aminotransferase 30 IU/L (17-59); BUN Creatinine Ratio 12.4 (6-22); Bilirubin Total 1.4 mg/dL (0.2-1.3); Blood Urea Nitrogen 21 mg/dL (9-20); Calcium 9.7 mg/dL (8.4-10.2); Carbon Dioxide 23 mmol/L (22-32); Chloride 105 mmol/L (98-107); Estimated Glomerular Filt Rate 39.6 mL/min (>60); Globulin 3.3 g/dL (1.7-4.1); Glucose 117 mg/dL (80-110); HEMOLYSIS < 15 (0-50); Lipase 45 U/L (23-300); Potassium 4.2 mmol/L (3.4-5.1); Sodium 134 mmol/L (137-145); Total Protein 7.8 g/dL (6.3-8.2)
[2021-04-22] MEDS: MINERAL OIL 1 EACH ENEMA PR (18:50)
--- NOTE | 2021-04-22 19:27 | DI.CT.S_ITS ---
PROCEDURE: CT KIDNEY URETER BLADDER (KUB) INDICATIONS: Decreased GFR, increased creatinine TECHNIQUE: Axial sections were acquired from the lung bases to the pubic symphysis. Coronal and sagittal reformats were performed. For radiation dose reduction, the following was used: automated exposure control, adjustment of mA and/or kV according to patient size. COMPARISON: [facility], CT, CT KIDNEY URETER BLADDER (KUB), 09/21/2020, 14:14. FINDINGS: Image quality: Excellent. Lung bases: Bibasilar atelectasis. Heart: No significant findings. URINARY: Right Kidney: No hydronephrosis. Nephrolithiasis, measuring up to 8.1 mm. Cortical hypoattenuating lesions are seen measuring up to 4.2 cm, compatible with cysts. Right Ureter: No hydroureter. Left Kidney: Moderate hydronephrosis and mild perinephric stranding. Cortical hypoattenuating lesions are seen measuring up to 4 cm, compatible with cysts. Left Ureter: Hydroureter with 11 mm calculus at the UPJ. Bladder: Normal wall thickness. No stones. ABDOMEN: Liver: Enlarged, measuring 21 cm in length. Hepatic steatosis. Gallbladder: Unremarkable. Biliary ducts: Unremarkable. Pancreas: Unremarkable. Spleen: Unremarkable. Adrenal Glands: Unremarkable. Stomach and Bowel: No evidence of intestinal obstruction. Colonic diverticulosis with mild wall thickening in the sigmoid region. Normal appendix. Peritoneum: No abnormal intraperitoneal fluid. No free air. Ventral Wall: No hernia. Abdominal Nodes: No enlarged retroperitoneal or mesenteric lymph nodes. Vessels: Persistent dilatation of the infrarenal aorta, measuring up to 3.1 cm. The IVC is unremarkable. PELVIS: Pelvic Organs: Enlargement the prostate measuring up to 4.9 cm in transverse dimension. Radiodensities within the prostate, likely reflecting markers. Dilatation of the left common iliac artery measuring up to 2.4 cm. Dilatation of the left internal iliac artery measuring up to 2 cm. Pelvic Nodes: Unremarkable. Miscellaneous: No inguinal hernias are seen. Fatty atrophy of the left tensor fascia angela muscle. Bones: Multifocal degenerative change. Mild dextrocurvature of the lumbar spine, which may reflect degenerative scoliosis. IMPRESSION: 1. Moderate left hydronephrosis and mild perinephric stranding with 11 mm calculus at the UPJ. Dictated by: Edgard Monroy M.D. on 04/22/2021 at 19:53 Approved by: Edgard Monroy M.D. on 04/22/2021 at 20:07
[2021-04-22] MEDS: SODIUM CHLORIDE 0.9% 1,000 ML 1000 ML IV (19:52)
[2021-04-22] MEDS: BISACODYL 10 MG SUPP PR (20:56)
[2021-04-22] MEDS: ACETAMINOPHEN 325 MG TABLET 650 MG PO (20:57)
[2021-04-22 20:59] LABS: Bacteria Urine None Seen; RBC Urine 10-30/HPF (0-5/HPF); WBC Urine None Seen (0-5/HPF)
[2021-04-22 21:00] LABS: Culture Indicated Urine Cult Not Indicated
[2021-04-22 21:07] LABS: Creatinine Urine Random 131.1 mg/dL; Sodium Urine Random 35 mmol/L (30-90)
[2021-04-22 22:35] VITALS: BP 124/80; PULSE 72; RESP 16; O2SAT 100
[2021-04-22] MEDS: MAGNESIUM CITRATE 300 ML SOLUTION PO (22:35)
== END 2021-04-22 22:36 | disposition home or self-care (01) ==
PROVIDERS: Physician Assistant; Emergency Provider Emergency Medicine; Family Provider Urology; PCP Internal Medicine
DX: K59.00 Constipation, unspecified (principal); N20.0 Calculus of kidney; N17.9 Acute kidney failure, unspecified; Z87.891 Personal history of nicotine dependence
CPT/HCPCS: 36415; 74018; 74176; 80053; 81003; 81015; 82570; 83690; 84300; 85025; 87086; 99284

== ENCOUNTER → 2021-08-17 12:49 | Outpatient (CLI) | payer MEDICARE, SELFPAY ==
[2021-08-17 15:04] LABS: BUN Creatinine Ratio 23.5 (6-22); Blood Urea Nitrogen 27 mg/dL (9-20); Estimated Glomerular Filt Rate > 60 mL/min (>60)
[2021-08-17 15:33] LABS: Prostate Specific Antigen 1.14 ng/mL (0.10-4.00)
== END ==
PROVIDERS: Family Provider Urology; PCP Internal Medicine; Referring Provider Urology; Visit Provider Urology
DX: C61 Malignant neoplasm of prostate (principal); N20.0 Calculus of kidney
CPT/HCPCS: 36415; 82565; 84153; 84520

== ENCOUNTER → 2021-08-30 11:39 | Outpatient (CLI) | payer MEDICARE, SELFPAY ==
--- NOTE | 2021-08-30 11:39 | DI.CT.S_ITS ---
PROCEDURE: CT KIDNEY URETER BLADDER (KUB) INDICATIONS: Calculus of ureter TECHNIQUE: Axial sections were acquired from the lung bases to the pubic symphysis. Coronal and sagittal reformats were performed. For radiation dose reduction, the following was used: automated exposure control, adjustment of mA and/or kV according to patient size. COMPARISON: [facility], CT, IVP (ABD & PEL WWO CONTRAST), 03/17/2015, 10:14. [facility], CT, CT KIDNEY URETER BLADDER (KUB), 04/22/2021, 19:39. FINDINGS: Image quality: Excellent. Lung bases: Unremarkable. Heart: No significant findings. URINARY: Right Kidney: Normal size. There are multiple low-density cystic lesions within the right kidney. There is a nonobstructing 1.0 cm calculus in the right kidney which measures approximately 800 Hounsfield units in density. No hydronephrosis. Right Ureter: No hydroureter. Left Kidney: Left kidney is normal size. Multiple low-density cystic lesions are present within the cortex. There are multiple nonobstructing left renal calculi, the largest of which measures 1.1 cm in the lower pole. This measures approximately 800 Hounsfield units in density. Left Ureter: No hydroureter. A phlebolith is redemonstrated adjacent to the left ureterovesicular junction and appears unchanged from the CT dated March 17, 2015. No ureteral calculi. Bladder: Normal wall thickness. No stones. ABDOMEN: Liver: Unremarkable. Gallbladder: Unremarkable. Biliary ducts: Unremarkable. Pancreas: Unremarkable. Spleen: Unremarkable. Adrenal Glands: Unremarkable. Stomach and Bowel: Stomach, small bowel loops, and colon are unremarkable. There are extensive sigmoid diverticula. No evidence for diverticulitis. The appendix is thin walled and gas filled. Peritoneum: No abnormal intraperitoneal fluid. No free air. Ventral Wall: No hernia. Abdominal Nodes: No enlarged retroperitoneal or mesenteric lymph nodes. Vessels: Aorta and inferior vena cava are normal in size. There are scattered atheromatous calcifications throughout the aorta . 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 PELVIS: Pelvic Organs: Unremarkable. Pelvic Nodes: Unremarkable. Miscellaneous: No inguinal hernias are seen. Bones: Unremarkable. IMPRESSION: 1. Bilateral nonobstructing nephrolithiasis with stones which measure approximately 800 Hounsfield units in density. 2. No hydronephrosis or hydroureter. No bladder calculi. 3. No acute intra-abdominal findings. Normal appendix. Diverticulosis. No acute diverticulitis. Dictated by: Mariella Ball M.D. on 08/30/2021 at 17:01 Approved by: Mariella Ball M.D. on 08/30/2021 at 17:08
== END ==
PROVIDERS: Family Provider Urology; PCP Internal Medicine; Referring Provider Physician Assistant Medical; Visit Provider Physician Assistant Medical
DX: N20.1 Calculus of ureter (principal); K57.30 Diverticulosis of large intestine without perforation or abscess without bleeding
CPT/HCPCS: 74176

== ENCOUNTER → 2021-09-13 12:26 | Outpatient (CLI) | payer MEDICARE, SELFPAY ==
[2021-09-13 13:41] LABS: Alanine Aminotransferase 33 IU/L (<50); Albumin 4.1 g/dL (3.5-5.0); Albumin Globulin Ratio 1.6 (1.0-2.8); Alkaline Phosphatase 90 U/L (38-126); Aspartate Aminotransferase 37 IU/L (17-59); BUN Creatinine Ratio 19.4 (6-22); Bilirubin Total 0.8 mg/dL (0.2-1.3); Blood Urea Nitrogen 24 mg/dL (9-20); Calcium 9.5 mg/dL (8.4-10.2); Carbon Dioxide 25 mmol/L (22-32); Chloride 107 mmol/L (98-107); Cholesterol 183 mg/dL (140-199); Estimated Glomerular Filt Rate > 60 mL/min (>60); Globulin 2.6 g/dL (1.7-4.1); Glucose 99 mg/dL (80-110); HDL Cholesterol 53 mg/dL (40-60); HEMOLYSIS < 15 (0-50); LDL Cholesterol Calculated 106 mg/dL (<100); Potassium 4.5 mmol/L (3.4-5.1); Sodium 138 mmol/L (137-145); Total Protein 6.7 g/dL (6.3-8.2); Triglycerides 118 mg/dL (35-150)
[2021-09-13 14:06] LABS: Prostate Specific Antigen 1.67 ng/mL (0.10-4.00)
== END ==
PROVIDERS: Family Provider Urology; PCP Internal Medicine; Referring Provider Internal Medicine; Visit Provider Internal Medicine
DX: G47.33 Obstructive sleep apnea (adult) (pediatric) (principal); Z13.6 Encounter for screening for cardiovascular disorders; R97.20 Elevated prostate specific antigen [PSA]; Z13.220 Encounter for screening for lipoid disorders
CPT/HCPCS: 36415; 80053; 80061; 84153

== ENCOUNTER → 2022-09-16 11:09 | Outpatient (CLI) | payer MEDICARE, SELFPAY ==
--- NOTE | 2022-09-16 11:10 | DI.RAD.S_ITS ---
PROCEDURE: XR KNEE RT 3V INDICATIONS: right knee pain TECHNIQUE: 3 views of the knee were acquired. COMPARISON: None. FINDINGS: Bones: No fractures or dislocations. No suspicious bony lesions. Tricompartmental arthritic change most severe laterally. Periarticular osteophytes are present. No erosions. Soft tissues: Moderate joint effusion. No suspicious soft tissue calcifications. IMPRESSION: Tricompartmental arthritic change. Dictated by: America Lucio M.D. on 09/16/2022 at 16:58 Approved by: America Lucio M.D. on 09/16/2022 at 16:59
== END ==
PROVIDERS: Family Provider Urology; PCP Internal Medicine; Referring Provider Internal Medicine; Visit Provider Internal Medicine
DX: M25.561 Pain in right knee (principal); M25.461 Effusion, right knee
CPT/HCPCS: 73562

== ENCOUNTER → 2022-10-10 14:45 | Outpatient (CLI) | payer MEDICARE, SELFPAY ==
[2022-10-10 15:43] LABS: Alanine Aminotransferase 27 IU/L (<50); Albumin 4.1 g/dL (3.5-5.0); Albumin Globulin Ratio 1.6 (1.0-2.8); Alkaline Phosphatase 96 U/L (38-126); Aspartate Aminotransferase 29 IU/L (17-59); BUN Creatinine Ratio 24.7 (6-22); Bilirubin Total 0.6 mg/dL (0.2-1.3); Blood Urea Nitrogen 24 mg/dL (9-20); Calcium 9.7 mg/dL (8.4-10.2); Carbon Dioxide 25 mmol/L (22-32); Chloride 108 mmol/L (98-107); Estimated Glomerular Filt Rate > 60 mL/min (>60); Globulin 2.6 g/dL (1.7-4.1); Glucose 97 mg/dL (80-110); HEMOLYSIS < 15 (0-50); Potassium 4.3 mmol/L (3.4-5.1); Sodium 140 mmol/L (137-145); Total Protein 6.7 g/dL (6.3-8.2)
[2022-10-10 16:13] LABS: Prostate Specific Antigen 1.11 ng/mL (0.10-4.00)
== END ==
PROVIDERS: Family Provider Urology; PCP Internal Medicine; Referring Provider Internal Medicine; Visit Provider Internal Medicine
DX: C61 Malignant neoplasm of prostate (principal); M06.9 Rheumatoid arthritis, unspecified
CPT/HCPCS: 36415; 80053; 84153

== ENCOUNTER → 2023-05-06 13:02 | Outpatient (CLI) | payer MEDICARE, SELFPAY | PROVIDERS: Family Provider Urology; PCP Internal Medicine; Referring Provider Urology; Visit Provider Urology | DX: Z85.46 Personal history of malignant neoplasm of prostate (principal) | CPT/HCPCS: 36415; 84153 ==

== ENCOUNTER → 2023-09-09 07:49 | Outpatient (CLI) | payer MEDICARE, SELFPAY ==
--- NOTE | 2023-09-09 07:50 | DI.CT.S_ITS ---
PROCEDURE: CT LUNG LOW DOSE SCREENING INDICATIONS: HISTORY OF TOBACCO USE TECHNIQUE: Noncontrast 2.0-2.5 mm thick sections acquired from the pulmonary apices to the posterior costophrenic angles. 7 mm thick axial MIP, and 5 mm coronal and sagittal reformats were then acquired. For radiation dose reduction, the following was used: automated exposure control, adjustment of mA and/or kV according to patient size. COMPARISON: None. FINDINGS: Image quality: Diagnostic. Lower Neck: No enlarged lymph nodes. Thyroid: No thyroid nodules which require sonographic follow up, per consensus guidelines. Axillae: No enlarged lymph nodes. Chest Wall: Unremarkable. Bones: Degenerative disc disease of the thoracic spine, most prominent at T7-8 with opposing endplate sclerosis. Lungs and Pleura: No pneumothorax or pleural effusions. Moderate centrilobular emphysema. Similar scarring of the right lung base. Subsegmental endobronchial nodule measuring point 4 x 5 mm (series 3, image 144). Heart: Heart size is normal. No pericardial effusion. Thoracic Vessels: The aorta and pulmonary arteries demonstrate normal size. Mediastinum and Kendra: No enlarged lymph nodes. Esophagus: No wall thickening. No hiatal hernia. Upper Abdomen: Partially visualized right renal cysts. IMPRESSION: No suspicious pulmonary nodules. LUNG-RADS 2; continued annual screening, if eligible. Clinically Significant Non-pulmonary Findings: None. Dictated by: Janes Bennett M.D. on 09/09/2023 at 11:16 Approved by: Janes Bennett M.D. on 09/09/2023 at 11:20
== END ==
PROVIDERS: Family Provider Urology; PCP Internal Medicine; Referring Provider Internal Medicine Pulmonary Disease; Visit Provider Internal Medicine Pulmonary Disease
DX: Z87.891 Personal history of nicotine dependence (principal); Z12.2 Encounter for screening for malignant neoplasm of respiratory organs
CPT/HCPCS: 71271

== ENCOUNTER → 2023-12-18 11:51 | Outpatient (CLI) | payer MEDICARE, SELFPAY | LOC: RESP 11:51 | PROVIDERS: Family Provider Urology; PCP Internal Medicine; Referring Provider Internal Medicine Pulmonary Disease; Visit Provider Internal Medicine Pulmonary Disease | DX: J44.9 Chronic obstructive pulmonary disease, unspecified (principal); Z87.891 Personal history of nicotine dependence; R94.2 Abnormal results of pulmonary function studies | CPT/HCPCS: 94060; 94726; 94729 ==

== ENCOUNTER → 2024-05-20 11:33 | Outpatient (CLI) | payer MEDICARE, SELFPAY ==
[2024-05-20 13:05] LABS: Prostate Specific Antigen 1.01 ng/mL (0.10-4.00)
== END ==
PROVIDERS: Family Provider Urology; PCP Internal Medicine; Referring Provider Internal Medicine; Visit Provider Physician Assistant Medical
DX: Z85.46 Personal history of malignant neoplasm of prostate (principal)
CPT/HCPCS: 36415; 84153

== ENCOUNTER → 2024-08-19 11:36 | Outpatient (CLI) | payer MEDICARE, SELFPAY ==
[2024-08-19 12:04] LABS: Add Manual Diff / Slide Review NO; Basophils Absolute Auto 0 /uL (0-100); Basophils Percent Auto 0.7 % (0-2); Eosinophils Absolute Auto 300 /uL (0-450); Hemoglobin 16.9 g/dL (13.5-17.5); Lymphocytes Absolute Auto 2400 /uL (1100-4500); Lymphocytes Percent Auto 39.4 % (25-40); Mean Corpuscular HGB Conc 33.7 % (30-36); Mean Corpuscular Hemoglobin 31.7 PG (26-34); Mean Corpuscular Volume 93.9 fL (80-100); Monocytes Absolute Auto 700 /uL (0-900); Monocytes Percent Auto 10.8 % (3-14); Neutrophils Absolute Auto 2700 /uL (1500-7000); Neutrophils Percent Auto 44.1 % (50-75); Platelet Count 160 X10^3/uL (150-400); Red Blood Cell Count 5.32 X10^6/uL (4.5-5.9); Red Cell Distribution Width 14.4 % (11.6-14.8)
[2024-08-19 12:14] LABS: Alanine Aminotransferase 26 IU/L (<50); Albumin 4.4 g/dL (3.5-5.0); Albumin Globulin Ratio 1.6 (1.0-2.8); Alkaline Phosphatase 114 U/L (38-126); Aspartate Aminotransferase 31 IU/L (17-59); BUN Creatinine Ratio 25.5 (6-22); Blood Urea Nitrogen 27 mg/dL (9-20); Calcium 9.8 mg/dL (8.4-10.2); Carbon Dioxide 20 mmol/L (22-32); Chloride 111 mmol/L (98-107); Cholesterol 206 mg/dL (140-199); Estimated Glomerular Filt Rate > 60 mL/min (>60); Globulin 2.7 g/dL (1.7-4.1); Glucose 93 mg/dL (70-99); HDL Cholesterol 62 mg/dL (40-60); HEMOLYSIS 16 (0-50); LDL Cholesterol Calculated 115 mg/dL (<100); Potassium 4.1 mmol/L (3.4-5.1); Sodium 141 mmol/L (137-145); Total Protein 7.1 g/dL (6.3-8.2); Triglycerides 146 mg/dL (35-150)
== END ==
PROVIDERS: Family Provider Urology; PCP Internal Medicine; Referring Provider Internal Medicine; Visit Provider Internal Medicine
DX: C61 Malignant neoplasm of prostate (principal); Z13.6 Encounter for screening for cardiovascular disorders; M06.9 Rheumatoid arthritis, unspecified; D64.9 Anemia, unspecified; Z13.1 Encounter for screening for diabetes mellitus; Z13.220 Encounter for screening for lipoid disorders
CPT/HCPCS: 36415; 80053; 80061; 85025